=== PATIENT | male | born 1990 | race Two or more races ===

== ENCOUNTER 2025-05-22 16:00 | Emergency (ER) | payer MEDICAID, OTHER ==
[~2025-05-22] VITALS: Ht 170.2 cm; Wt 84.4 kg
[2025-05-22] MEDS: KETOROLAC TROMETH 60MG/2ML VIAL IM ONE (16:46)
--- NOTE | 2025-05-22 17:03 | DVH ---
EXAM: XY CHEST PORTABLE HISTORY: Chest pain COMPARISON: None TECHNIQUE: PA upright view of the chest was performed. FINDINGS: No pneumothorax, consolidative infiltrates, or pulmonary edema. The heart is not enlarged. IMPRESSION: No acute intrathoracic process.
--- NOTE | 2025-05-22 17:34 | ED.PDOC ---
History of Present Illness HPI Comments 34 year old male presents to the ED for the c/c of diffuse central and left- sided chest pain that has been causing shortness a breath. Pt states that he had a sudden onset of SOB today and shortly after started to have chest pain w/ his SOB. No coughing, no recent travel, or illness. Lungs are clear bilaterally in all horvath. No other associated symptoms, modifiers, recent injuries or sick contacts present at this time. Vital signs were stable. Patient did not look toxic. Chief Complaint: Shortness of Breath Time Seen by MD: 17:32 Reviewed Notes: Nurses Notes, Medications, Allergies Allergies: Coded Allergies: NO KNOWN ALLERGIES (Unverified , 05/22/25) Information Source: Patient Mode of Arrival: Ambulatory Severity: Moderate Timing: Hours Duration: Since onset, Hours Prehospital treatment: None Past Medical History PAST MEDICAL HISTORY: Denies Surgical History: Unknown Family History Family History: Unknown Social History Smoker: Non-Smoker Alcohol: Denies ETOH Use Drugs: Denies Drug Use Lives In: Home Constitutional: denies: chills, diaphoresis, fatigue, fever, malaise, sweats, weakness, others EENTM: denies: blurred vision, double vision, ear bleeding, ear discharge, ear drainage, ear pain, ear ringing, eye pain, eye redness, hearing loss, mouth pain, mouth swelling, nasal discharge, nose bleeding, nose congestion, nose pain, photophobia, tearing, throat pain, throat swelling, voice changes, others Respiratory: reports: SOB at rest, shortness of breath; denies: cough, hemoptysis, orthopnea, SOB with excertion, stridor, wheezing, others Cardiovascular: reports: chest pain; denies: dizzy spells, diaphoresis, Dyspnea on exertion, edema, irregular heart beat, left arm pain, lightheadedness, palpitations, PND, syncope, others Gastrointestinal: denies: abdomen distended, abdominal pain, blood streaked bowels, constipated, diarrhea, dysphagia, difficulty swallowing, hematemesis, melena, nausea, poor appetite, poor fluid intake, rectal bleeding, rectal pain, vomiting, others Genitourinary: denies: burning, dysuria, flank pain, frequency, hematuria, incontinence, penile discharge, penile sore, pain, testicle pain, testicle swelling, urgency, others Neurological: denies: dizziness, fainting, headache, left sided numbness, left sided weakness, numbness, paresthesia, pre-existing deficit, right sided numbness, right sided weakness, seizure, speech problems, tingling, tremors, weakness, others Musculoskeletal: denies: back pain, gout, joint pain, joint swelling, muscle pain, muscle stiffness, neck pain, others Integumetry: denies: bruises, change in color, change in hair/nails, dryness, laceration, lesions, lumps, rash, wounds, others Allergic/Immunocompromised: denies: Difficulty Healing, Frequent Infections, Hives, Itching, others Hematologic/Lymphatic: denies: anemia, blood clots, easy bleeding, easy bruising, swollen glands, others Endocrine: denies: excessive hunger, excessive sweating, excessive thirst, excessive urination, flushing, intolerance to cold, intolerance to heat, unexplained weight gain, unexplained weight loss, others Psychiatric: denies: anxiety, bipolar disorder, depression, hopeless, panic disorder, schizophrenia, sleepless, suicidal, others All Other Systems: Reviewed and Negative Physical Exam General Appearance: Mild Distress (Patient has a mild discomfort at time of evaluation.), Normal HEENT: Normal ENT Inspection, Pharynx Normal, TMs Normal Neck: Full Range of Motion, Non-Tender, Normal, Normal Inspection Respiratory: Lungs Clear, No Accessory Muscle Use, No Respiratory Distress, Normal Breath Sounds, Other (Unremarkable auscultation bilateral lung horvath. U nable to elicit any additional chest pain on palpation of left-sided chest.) Cardiovascular: No Edema, No JVD, No Murmur, No Gallop, Normal Peripheral Pulses, Regular Rate/Rhythm Breast Exam: Deferred Gastrointestinal: No Organomegaly, Non Tender, No Pulsatile Mass, Normal Bowel Sounds, Soft Genitalia: Deferred Pelvic: Deferred Rectal: Deferred Extremities: No calf tenderness, Normal capillary refill, Normal inspection, Normal range of motion, Non-tender, No pedal edema Musculoskeletal : Apperance: Normal Neurologic: Alert, No Motor Deficits, Normal Affect, Normal Mood, No Sensory Deficits Cerebellar Function: Normal Reflexes: Normal Skin: Dry, Normal Color, Warm Lymphatic: No Adenopathy Was a procedure done? Was a procedure done?: No Differential Dx Considerations may include: Pneumonia, viral upper respiratory illness, acute coronary syndrome, angina, SC X-Ray, Labs, Meds, VS Vital Signs Date Time Temp Pulse Resp B/P (MAP) Pulse Ox O2 Delivery O2 Flow Rate FiO2 05/22/25 16:50 98.9 64 17 132/88 (103) 97 98.9 05/22/25 16:50 64 17 97 Room Air 05/22/25 16:14 77 05/22/25 16:13 98.7 83 16 140/94 (109) 98 98.7 05/22/25 16:13 83 16 98 Room Air 0 Lab Test 05/22/25 16:54 Range/Units White Blood Count 7.6 4.4-10.8 10^3/uL Red Blood Count 5.41 4.5-5.90 10^6/uL Hemoglobin 16.6 13.5-17.5 g/dL Hematocrit 47.1 41.0-53.0 % Mean Corpuscular Volume 87.2 80.0-100.0 fL Mean Corpuscular Hemoglobin 30.6 28.0-32.0 pg Mean Corpuscular Hemoglobin Concent 35.1 32.0-36.0 g/dL Red Cell Distribution Width 13.3 11.8-14.3 % Platelet Count 188 140-450 10^3/uL Mean Platelet Volume 9.5 6.9-10.8 fL Neutrophils (%) (Auto) 56.6 37.0-80.0 % Lymphocytes (%) (Auto) 32.2 10.0-50.0 % Monocytes (%) (Auto) 6.3 0.0-12.0 % Eosinophils (%) (Auto) 4.3 0.0-7.0 % Basophils (%) (Auto) 0.6 0.0-2.0 % Neutrophils # (Auto) 4.3 1.6-8.6 10 ^3/uL Lymphocytes # (Auto) 2.4 0.4-5.4 10 ^3/uL Monocytes # (Auto) 0.5 0-1.3 10 ^3/uL Eosinophils # (Auto) 0.3 0-0.8 10 ^3/uL Basophils # (Auto) 0 0-0.2 10 ^3/uL Nucleated Red Blood Cells 0.2 % D-Dimer, Quantitative < 0.19 0.0-0.49 mg/L FEU Sodium Level 142 136-145 mmol/L Potassium Level 3.9 3.5-5.1 mmol/L Chloride Level 106 98-107 mmol/L Carbon Dioxide Level 27 20-31 mmol/L Anion Gap 9 5-15 Blood Urea Nitrogen 11 9-23 mg/dL Creatinine 0.92 0.700-1.30 mg/dL Glomerular Filtration Rate Calc 113 >90 mL/min BUN/Creatinine Ratio 12.0 10.0-20.0 Serum Glucose 98 74-106 mg/dL Calcium Level 9.7 8.7-10.4 mg/dL Troponin I High Sensitivity 16 </=54 ng/L B-Type Natriuretic Peptide 20.94 0-100 pg/mL Current Medications Medications (Trade) Dose Ordered Sig/Alexandra Route Start Time Stop Time Status Last Admin Ketorolac Tromethamine (Toradol Injection) 30 mg ONCE ONCE IM 05/22/25 16:45 05/22/25 16:46 DC 05/22/25 16:46 X-Ray, Labs, Meds, VS Comment All studies performed in the ED were evaluated by me personally. Serum studies were unremarkable for any systemic process including unremarkable cardiac markers. EKG revealed a sinus rhythm with a rate of 77. Borderline right axis deviation noted with early repolarization pattern. PA interval of 181 and QT interval of 365. Chest x-ray was unremarkable for any consolidation or intr apulmonary concerns. Unknown cause of the patient's chest pain concerns. Advised patient utilize medication as needed and if symptoms continue, patient will need to follow up with the primary care provider. Time of 1ST Reevaluation: 18:07 Reevaluation 1ST: Improved Consultation: PCP, Cardiology Patient Education/Counseling: Diagnosis, Treatment, Need For Follow Up Family Education/Counseling: Diagnosis, Treatment, No Family Present SEPSIS Sepsis Screen Date sepsis recognized/suspect: May 22, 2025 Time Sepsis recognized/suspect: 161 Recent Procedure: No On Antibiotic Therapy: No Respiratory Rate >20: No Heart Rate >90: No Temp<36 C (96.8 F) or >38.3 C: No SBP <90 or MAP <65 mmHG: No New Acute Mental Status Change: No Is the patient on CPAP, BIPAP,: No Physician Orders Electrocardigram (05/22/25 16:17) Chest Portable (05/22/25 16:33) Vital Signs Date Time Temp Pulse Resp B/P (MAP) Pulse Ox O2 Delivery O2 Flow Rate FiO2 05/22/25 16:50 98.9 64 17 132/88 (103) 97 98.9 05/22/25 16:50 64 17 97 Room Air 05/22/25 16:14 77 05/22/25 16:13 98.7 83 16 140/94 (109) 98 98.7 05/22/25 16:13 83 16 98 Room Air 0 Laboratory Tests Test 05/22/25 16:54 White Blood Count 7.6 10^3/uL (4.4-10.8) Medications Medications Dose Ordered Sig/Alexandra Route Start Time Stop Time Status Last Admin Dose Admin Ketorolac Tromethamine 30 mg ONCE ONCE IM 05/22/25 16:45 05/22/25 16:46 DC 05/22/25 16:46 Departure 1 Departure Time of Disposition: 18:10 Impression: Primary Impression: Chest pain Disposition: HOME / SELF CARE / HOMELESS Condition: Stable Additional Instructions: Advised medication as needed for symptomatic relief. If symptoms continue, patient will need to follow up with the primary care provider for re-evaluation and possible cardiac referral. e-Prescriptions Ibuprofen Micronized (Ibuprofen) 800 Mg Tab 800 MG PO Q8HP PRN, #20 TAB Prov: EVAN REDDY PAC 05/22/25 Discharged With: Self, Friend Critical Care Note Critical Care Time?: No Stability Stability form required: No Heart Score Heart Score: Heart Score Response (Comments) Value History Slightly Suspicious 0 EKG Repolarization Disturb 1 Age <45 0 Risk Factors No known risk factors 0 Troponin Normal limit 0 Total 1 I personally scribed for EVAN REDDY PAC ([email or web address]) on 05/22/25 at 17:34. Electronically submitted by Refugio Otero ([email or web address]). EVAN REDDY PAC May 22, 2025 17:34
[2025-05-22 17:40] LABS: Hematocrit 47.1 % (41.0-53.0); Hemoglobin 16.6 g/dL (13.5-17.5); Mean Corpuscular Hemoglobin 30.6 pg (28.0-32.0); Mean Corpuscular Volume 87.2 fL (80.0-100.0); Nucleated Red Blood Cells % 0.2 %
[2025-05-22 17:41] LABS: Chloride 106 mmol/L (98-107); Potassium 3.9 mmol/L (3.5-5.1); Sodium 142 mmol/L (136-145)
[2025-05-22 17:42] LABS: Anion Gap 9 (5-15); Calcium 9.7 mg/dL (8.7-10.4); Carbon Dioxide 27 mmol/L (20-31)
[2025-05-22 17:47] LABS: BUN/Creatinine Ratio 12.0 (10.0-20.0); Blood Urea Nitrogen 11 mg/dL (9-23); Glucose 98 mg/dL (74-106)
[2025-05-22] MEDS ORDERED: IBUP-1455 PO (18:08)
[2025-05-22 18:39] VITALS: BP 126/89; PULSE 53; RESP 16; TEMP 98.3; O2SAT 99
--- NOTE | 2025-05-27 07:44 | ECG ---
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
--- NOTE | 2025-05-28 12:00 | ECG ---
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
== END 2025-05-22 18:42 | disposition home or self-care (01) ==
LOC: ER 16:00
DX: R07.89 Other chest pain (principal)
CPT/HCPCS: 36415; 71045; 80048; 83880; 84484; 85025; 85379; 93005; 96372; 99285; J1885

== ENCOUNTER 2025-05-24 14:35 | Inpatient (IN) | payer MEDICAID ==
[~2025-05-24] VITALS: Ht 170.2 cm; Wt 84.0 kg
[~2025-05-24 14:35] MED LIST: IBUP-1455 PO
--- NOTE | 2025-05-24 14:48 | ED.PDOC ---
HPI Comments 34 y.o male presents to the ED for a chief complaint of substernal chest pain associated with nausea and SOB that started 2 hours ago while driving. Patient describes pain as sharp, non radiating, constant and rating a 6/10 on the pain scale. Patient has no alleviating factors. Patient mentions being seen 2 days ago at [facility] for same complaint, labs and CXR came back unremarkable and was discharged with Ibuprofen prescription for pain. He denies any vomiting, diarrhea, abdominal pain, fever or chills. He admits to tobacco use but denies substance or alcohol use. Time Seen by MD: 14:41 Reviewed Notes: Nurses Notes, Medications, Allergies Allergies: Coded Allergies: NO KNOWN ALLERGIES (Unverified , 05/22/25) Home Meds Active Scripts Ibuprofen Micronized (Ibuprofen) 800 Mg Tab, 800 MG PO Q8HP PRN, #20 TAB Prov:EVAN REDDY Bess PAC 05/22/25 Information Source: Patient Mode of Arrival: Ambulatory Severity: Moderate Timing: Hours (2) Duration: Since onset Location: Substernal Radiation: No Radiation Quality: Sharp Onset: At Rest Cardiac Risk Factors: None PE Risk Factors: None History of: Similar pain in past Modifying Factors: Nothing Associated Signs and Symptoms: SOB, N/V (nausea only ) Past Medical History PAST MEDICAL HISTORY: Denies Surgical History: Denies all surgeries Family History Family History: Family hx of HTN Social History Smoker: Cigarettes Alcohol: Denies ETOH Use Drugs: Denies Drug Use Lives In: Home Constitutional: denies: chills, diaphoresis, fatigue, fever, malaise, sweats, weakness, others EENTM: denies: blurred vision, double vision, ear bleeding, ear discharge, ear drainage, ear pain, ear ringing, eye pain, eye redness, hearing loss, mouth pain, mouth swelling, nasal discharge, nose bleeding, nose congestion, nose pain, photophobia, tearing, throat pain, throat swelling, voice changes, others Respiratory: reports: SOB at rest, shortness of breath, SOB with excertion; denies: cough, hemoptysis, orthopnea, stridor, wheezing, others Cardiovascular: reports: chest pain; denies: dizzy spells, diaphoresis, Dyspnea on exertion, edema, irregular heart beat, left arm pain, lightheadedness, palpitations, PND, syncope, others Gastrointestinal: reports: nausea; denies: abdomen distended, abdominal pain, blood streaked bowels, constipated, diarrhea, dysphagia, difficulty swallowing, hematemesis, melena, poor appetite, poor fluid intake, rectal bleeding, rectal pain, vomiting, others Genitourinary: denies: burning, dysuria, flank pain, frequency, hematuria, incontinence, penile discharge, penile sore, pain, testicle pain, testicle swelling, urgency, others Neurological: denies: dizziness, fainting, headache, left sided numbness, left sided weakness, numbness, paresthesia, pre-existing deficit, right sided numbness, right sided weakness, seizure, speech problems, tingling, tremors, weakness, others Musculoskeletal: denies: back pain, gout, joint pain, joint swelling, muscle pain, muscle stiffness, neck pain, others Integumetry: denies: bruises, change in color, change in hair/nails, dryness, laceration, lesions, lumps, rash, wounds, others Allergic/Immunocompromised: denies: Difficulty Healing, Frequent Infections, Hives, Itching, others Hematologic/Lymphatic: denies: anemia, blood clots, easy bleeding, easy br uising, swollen glands, others Endocrine: denies: excessive hunger, excessive sweating, excessive thirst, excessive urination, flushing, intolerance to cold, intolerance to heat, unexplained weight gain, unexplained weight loss, others Psychiatric: denies: anxiety, bipolar disorder, depression, hopeless, panic disorder, schizophrenia, sleepless, suicidal, others All Other Systems: Reviewed and Negative Physical Exam General Appearance: Mild Distress HEENT: Normal ENT Inspection, Pharynx Normal, TMs Normal Neck: Full Range of Motion, Non-Tender, Normal, Normal Inspection Respiratory: Chest Non-Tender, Lungs Clear, No Accessory Muscle Use, No Respiratory Distress, Normal Breath Sounds Cardiovascular: No Edema, No JVD, No Murmur, No Gallop, Normal Peripheral Pulses, Regular Rate/Rhythm Breast Exam: Deferred Gastrointestinal: No Organomegaly, Non Tender, No Pulsatile Mass, Normal Bowel Sounds, Soft Genitalia: Deferred Pelvic: Deferred Rectal: Deferred Extremities: No calf tenderness, Normal capillary refill, Normal inspection, Normal range of motion, Non-tender, No pedal edema Musculoskeletal : Apperance: Normal Neurologic: Alert, court specialist II-XII nml as Tested, No Motor Deficits, Normal Affect, Normal Mood, No Sensory Deficits Cerebellar Function: Normal Reflexes: Normal Skin: Dry, Normal Color, Warm Lymphatic: No Adenopathy EKG EKG : Pulse Rate (adult): 63 Cardiac Rhythm: NSR Was a procedure done? Was a procedure done?: No CP Differential Dx Differential Diagnosis: N/A Differential Diagnosis: Angina, Chest Wall Pain, Cholelithiasis, Costochondri tis, Myocardial Infarction, Pericarditis X-Ray, Labs, Meds, VS Vital Signs Date Time Temp Pulse Resp B/P (MAP) Pulse Ox O2 Delivery O2 Flow Rate FiO2 05/24/25 15:05 63 18 98 Room Air* 0 21 05/24/25 14:48 63 05/24/25 14:41 63 05/24/25 14:37 98.5 63 18 128/71 (90) 98 98.5 05/24/25 14:37 98.5 63 18 128/71 (90) 98 98.5 Lab Test 05/24/25 15:36 05/24/25 14:49 05/24/25 14:45 Range/Units Troponin I High Sensitivity 8 8 </=54 ng/L White Blood Count 7.5 4.4-10.8 10^3/uL Red Blood Count 5.25 4.5-5.90 10^6/uL Hemoglobin 16.3 13.5-17.5 g/dL Hematocrit 46.2 41.0-53.0 % Mean Corpuscular Volume 87.9 80.0-100.0 fL Mean Corpuscular Hemoglobin 30.9 28.0-32.0 pg Mean Corpuscular Hemoglobin Concent 35.2 32.0-36.0 g/dL Red Cell Distribution Width 13.2 11.8-14.3 % Platelet Count 181 140-450 10^3/uL Mean Platelet Volume 9.4 6.9-10.8 fL Neutrophils (%) (Auto) 57.5 37.0-80.0 % Lymphocytes (%) (Auto) 31.2 10.0-50.0 % Monocytes (%) (Auto) 7.0 0.0-12.0 % Eosinophils (%) (Auto) 3.6 0.0-7.0 % Basophils (%) (Auto) 0.7 0.0-2.0 % Neutrophils # (Auto) 4.3 1.6-8.6 10 ^3/uL Lymphocytes # (Auto) 2.3 0.4-5.4 10 ^3/uL Monocytes # (Auto) 0.5 0-1.3 10 ^3/uL Eosinophils # (Auto) 0.3 0-0.8 10 ^3/uL Basophils # (Auto) 0 0-0.2 10 ^3/uL Nucleated Red Blood Cells 0.2 % D-Dimer, Quantitative < 0.19 0.0-0.49 mg/L FEU Sodium Level 144 136-145 mmol/L Potassium Level 4.0 3.5-5.1 mmol/L Chloride Level 109 H 98-107 mmol/L Carbon Dioxide Level 26 20-31 mmol/L Anion Gap 9 5-15 Blood Urea Nitrogen 11 9-23 mg/dL Creatinine 0.98 0.700-1.30 mg/dL Glomerular Filtration Rate Calc 105 >90 mL/min BUN/Creatinine Ratio 11.2 10.0-20.0 Serum Glucose 102 74-106 mg/dL Calcium Level 10.3 8.7-10.4 mg/dL Urine Opiates Screen Neg NEGATIVE Urine Fentanyl Screen Neg NEGATIVE Urine Barbiturates Screen Neg NEGATIVE Urine Phencyclidine Screen Neg NEGATIVE Urine Amphetamines Screen Neg NEGATIVE Urine Benzodiazepines Screen Neg NEGATIVE Urine Cocaine Screen Neg NEGATIVE Urine Cannabinoids Screen Neg NEGATIVE Current Medications Medications (Trade) Dose Ordered Sig/Alexandra Route Start Time Stop Time Status Last Admin Aspirin 162 mg ONCE ONCE PO 05/24/25 15:00 05/24/25 15:01 DC 05/24/25 15:07 IV Hep-Lock was established The patient was given aspirin 160 mg by mouth The urine tox is negative The D-dimer is negative The CBC and chemistry panel are within normal limits The patient's troponin level x2 is negative At this time, the patient came back with the persistent chest pain so we are going to admit patient to the hospitalist A cardiology consult will be obtained Images Reviewed?: Images reviewed and evaluated by me Time of 1ST Reevaluation: 14:44 Reevaluation 1ST: Unchanged Patient Education/Counseling: Diagnosis, Treatment, Prognosis Family Education/Counseling: No Family Present SEPSIS Sepsis Screen Physician Orders Heplock Iv (05/24/25 14:46) Security Assessor (05/24/25 14:46) Blood Pressure (05/24/25 14:46) Pulse Oximetry (05/24/25 14:46) Electrocardigram (05/24/25 14:46) Troponin-I Hs (05/24/25 17:46) Electrocardigram (05/24/25 15:46) Electrocardigram (05/24/25 17:46) Vital Signs Date Time Temp Pulse Resp B/P (MAP) Pulse Ox O2 Delivery O2 Flow Rate FiO2 05/24/25 15:05 63 18 98 Room Air* 0 21 05/24/25 14:48 63 05/24/25 14:41 63 05/24/25 14:37 98.5 63 18 128/71 (90) 98 98.5 05/24/25 14:37 98.5 63 18 128/71 (90) 98 98.5 Laboratory Tests Test 05/24/25 14:49 White Blood Count 7.5 10^3/uL (4.4-10.8) Medications Medications Dose Ordered Sig/Alexandra Route Start Time Stop Time Status Last Admin Dose Admin Aspirin 162 mg ONCE ONCE PO 05/24/25 15:00 05/24/25 15:01 DC 05/24/25 15:07 Departure 1 Departure Time of Disposition: 16:07 Impression: Primary Impression: Acute chest pain Disposition: ADMITTED INPATIENT Admit to: Tele Condition: Fair Critical Care Note Critical Care Time?: No Stability Stability form required: Yes Unstable for transfer: Telemetry monitoring (Telemetry monitoring required), ED Physician Assesment (Clinical assesment) Heart Score Heart Score: Heart Score Response (Comments) Value History Slightly Suspicious 0 EKG Normal 0 Age <45 0 Risk Factors No known risk factors 0 Troponin Normal limit 0 Total 0 I personally scribed for ZENY DIALLO MD ([email or web address]) on 05/24/25 at 14:48. Electr onically submitted by Natalia Rivas ([facility]). ZENY DIALLO MD May 24, 2025 14:48
[2025-05-24 15:05] VITALS: PULSE 63; RESP 18; O2SAT 98
[2025-05-24 15:13] LABS: Hematocrit 46.2 % (41.0-53.0); Hemoglobin 16.3 g/dL (13.5-17.5); Mean Corpuscular Hemoglobin 30.9 pg (28.0-32.0); Mean Corpuscular Volume 87.9 fL (80.0-100.0); Nucleated Red Blood Cells % 0.2 %
[2025-05-24 15:15] LABS: Amphetamine Screen, Urine Neg (NEGATIVE); Barbiturate Scree,Urine Neg (NEGATIVE); Benzodiazephine Screen, Urine Neg (NEGATIVE); Cannabinoid Screen, Urine Neg (NEGATIVE); Cocaine Screen, Urine Neg (NEGATIVE); Opiate Scree,Urine Neg (NEGATIVE); Phencyclidine Screen, Urine Neg (NEGATIVE)
[2025-05-24 15:17] LABS: Potassium 4.0 mmol/L (3.5-5.1); Sodium 144 mmol/L (136-145)
[2025-05-24 15:18] LABS: Anion Gap 9 (5-15); Calcium 10.3 mg/dL (8.7-10.4); Carbon Dioxide 26 mmol/L (20-31)
[2025-05-24 15:23] LABS: BUN/Creatinine Ratio 11.2 (10.0-20.0); Blood Urea Nitrogen 11 mg/dL (9-23); Chloride 109 mmol/L (98-107); Glucose 102 mg/dL (74-106)
--- NOTE | 2025-05-24 17:58 | ECG ---
[facility] Test Date: 2025-05-24 Test Time: 17:57:10 Pat Name: LAURIE HERBERT Department: ER Room: 0285T Gender: M Ct Scan Tech: NORRIS : 1990 Requested By: ZENY DIALLO Order Number: [id number] Reading MD: Abelardo Benjamin Measurements Intervals [place] Rate: 50 P: 161 SD: 157 QRS: 89 QRSD: 87 T: -18 QT: 438 QTc: 400 Interpretive Statements Sinus or ectopic atrial rhythm Lateral infarct, acute Borderline ST elevation, anterior leads Electronically Signed On 05-28-2025 18:54:54 PDT by Abelardo Benjamin Please click the below link to view image of tracing.
--- NOTE | 2025-05-24 22:53 | DVHHP2 ---
History of Present Illness History of Present Illness Patient is 34 years old male with no significant past medical history came with a complaint of chest pain. As per patient he has been having chest pain for last 1 month which is intermittent. As per patient pain got worse today.. The patient pain was gradual in nature, left-sided, 7/10, sharp, pressure-like, increased with the breathing, no relieving factor. Patient also endorsed some palpitation and nausea but no vomiting with the chest pain. on further inquiry patient also endorsed feeling dizzy lately during ambulation and also during rest. Patient denied any fever, cough, diarrhea, abdominal pain, acute joint redness or swelling, dysarthria or change in vision. Patient visited [facility] ER 2 days before with the same complaint and was discharged with ibuprofen. Initial lab workup was negative for troponin I, UDS negative, D-dimer< 0.19. EKG revealed Q-wave and T-wave inversion on lead 3., AVF. Past Medical History none Past Surgical History none Family History Mom had hypertension Past Social History Smokes 1 or 2 cigarettes per day, denies alcoholism or substance abuse, lives with family Review of Systems Review of Systems Allergy-NKDA Patient was seen today at the bedside. Respiratory denies cough or wheezing Gastrointestinal- denies any rectal bleeding, nausea or vomiting Musculoskeletal-denies acute joint swelling or tenderness or redness Neurological- denies acute dysarthria, dysphagia, change in vision Psychiatry- denies depression or SI or HI Skin- denies acute rash or purpura Allergies: Coded Allergies: NO KNOWN ALLERGIES (Unverified , 05/22/25) Exam Vital Signs Vital Signs Date Time Temp Pulse Resp B/P (MAP) Pulse Ox O2 Delivery O2 Flow Rate FiO2 05/24/25 22:04 99.9 54 16 127/89 (102) 99 99.9 05/24/25 15:05 Room Air* 0 21 Labs/Xrays Labs Test 05/24/25 15:36 05/24/25 14:49 05/24/25 14:45 Range/Units Troponin I High Sensitivity 8 </=54 ng/L White Blood Count 7.5 4.4-10.8 10^3/uL Red Blood Count 5.25 4.5-5.90 10^6/uL Hemoglobin 16.3 13.5-17.5 g/dL Hematocrit 46.2 41.0-53.0 % Mean Corpuscular Volume 87.9 80.0-100.0 fL Mean Corpuscular Hemoglobin 30.9 28.0-32.0 pg Mean Corpuscular Hemoglobin Concent 35.2 32.0-36.0 g/dL Red Cell Distribution Width 13.2 11.8-14.3 % Platelet Count 181 140-450 10^3/uL Mean Platelet Volume 9.4 6.9-10.8 fL Neutrophils (%) (Auto) 57.5 37.0-80.0 % Lymphocytes (%) (Auto) 31.2 10.0-50.0 % Monocytes (%) (Auto) 7.0 0.0-12.0 % Eosinophils (%) (Auto) 3.6 0.0-7.0 % Basophils (%) (Auto) 0.7 0.0-2.0 % Neutrophils # (Auto) 4.3 1.6-8.6 10 ^3/uL Lymphocytes # (Auto) 2.3 0.4-5.4 10 ^3/uL Monocytes # (Auto) 0.5 0-1.3 10 ^3/uL Eosinophils # (Auto) 0.3 0-0.8 10 ^3/uL Basophils # (Auto) 0 0-0.2 10 ^3/uL Nucleated Red Blood Cells 0.2 % D-Dimer, Quantitative < 0.19 0.0-0.49 mg/L FEU Sodium Level 144 136-145 mmol/L Potassium Level 4.0 3.5-5.1 mmol/L Chloride Level 109 H 98-107 mmol/L Carbon Dioxide Level 26 20-31 mmol/L Anion Gap 9 5-15 Blood Urea Nitrogen 11 9-23 mg/dL Creatinine 0.98 0.700-1.30 mg/dL Glomerular Filtration Rate Calc 105 >90 mL/min BUN/Creatinine Ratio 11.2 10.0-20.0 Serum Glucose 102 74-106 mg/dL Calcium Level 10.3 8.7-10.4 mg/dL Urine Opiates Screen Neg NEGATIVE Urine Fentanyl Screen Neg NEGATIVE Urine Barbiturates Screen Neg NEGATIVE Urine Phencyclidine Screen Neg NEGATIVE Urine Amphetamines Screen Neg NEGATIVE Urine Benzodiazepines Screen Neg NEGATIVE Urine Cocaine Screen Neg NEGATIVE Urine Cannabinoids Screen Neg NEGATIVE Assessment/Plan Assessment/Plan Assessment and plan #Acute chest pain, rule out acute coronary syndrome, rule out pericarditis -troponin negative -EKG Q-wave and T-wave inversion in lead 3 and AVF -continue aspirin 81 mg p.o. daily -continue atorvastatin 40 mg p.o. daily -ordered cardiology consult for further evaluation and care -pending echo 2D #Dizziness -rule out cardiac arrhythmia -ordered orthostatic vitals --EKG Q-wave and T-wave inversion in lead 3 and AVF -pending echo 2D # Overweight -patient was counseled about the effect of overweight on health, healthy diet, physical activity, weight reduction Goals of care, Code status full code ; discussed with >15 minutes PUD prophylaxis: Pantoprazole DVT prophylaxis: Patient ambulating Plan discussed with Dr. Ibarra , nursing staff, Total time spent on patient evaluation, chart review, assessment and plan, discussion discussion >35 minutes Plan discussed with: Patient, Other (RN) My Orders Orders - RADHA TURNER Procedure Category Date Status Time Admit ADMIT 05/24/25 Transmitted 22:50 Code Status CODE 05/24/25 Transmitted 22:50 Sodium Chloride Lock PHA 05/25/25 Transmitted (Saline Lock Ns) 06:00 Complete Blood Count LAB 05/25/25 Verified 04:00 Comprehensive LAB 05/25/25 Verified Metabolic Panel 04:00 Echo 2d Mode Cardiac US 05/24/25 Transmitted DOP 22:50 Nitroglycerin PHA 05/24/25 Transmitted Sublingual (Ntrostat 23:00 Morphine Sulfate PHA 05/24/25 Transmitted Injection 23:00 Notify Md Of Changes JANE 05/24/25 Transmitted From Base 22:50 Plant Utilities Engineer For JANE 05/24/25 Transmitted 24 Hours 22:50 Date of Service: May 24, 2025 Billing Provider: ALEJANDRA IBARRA MD Common Visit Codes: [id number] INP/OBS CARE (HIGH) Secondary Visit Codes: [id number] CARE PLAN 30 MINUTES RADHA TURNER May 24, 2025 22:53
[2025-05-24] MEDS: PANTOPRAZOLE 40 MG TAB PO ONE (23:00)
[2025-05-24] MEDS ORDERED: KETOROLAC TROMETH 30 MG/ML 1ML VIAL IV PRN (23:00)
[2025-05-24] MEDS ORDERED: MORPHINE SULFATE INJ 2 MG/ml SYRG IV PRN (23:00)
[2025-05-24] MEDS ORDERED: NITROGLYCERIN 0.4 MG SL TAB SL PRN (23:00)
[2025-05-25] MEDS: ATORVASTATIN 20 MG TAB PO ONE (02:58)
[2025-05-25 05:00] LABS: Chloride 105 mmol/L (98-107); Potassium 3.5 mmol/L (3.5-5.1); Sodium 143 mmol/L (136-145)
[2025-05-25 05:01] LABS: Anion Gap 10 (5-15); Calcium 10.1 mg/dL (8.7-10.4); Carbon Dioxide 28 mmol/L (20-31)
[2025-05-25 05:06] LABS: BUN/Creatinine Ratio 12.6 (10.0-20.0); Blood Urea Nitrogen 14 mg/dL (9-23); Glucose 116 mg/dL (74-106)
[2025-05-25 05:07] LABS: Magnesium 2.2 mg/dL (1.6-2.6)
[2025-05-25 05:08] LABS: Cholesterol 173 mg/dL (< 200)
[2025-05-25 05:17] LABS: HDL Cholesterol 33 mg/dL (40-59); Triglycerides 207 mg/dL (< 150)
[2025-05-25] MEDS: PANTOPRAZOLE 40 MG TAB PO SCH (05:51)
[2025-05-25] MEDS: SODIUM CHLOR 0.9% PF (SALINE LOCK) 10ML VIAL/SYR IV SCH (06:22)
[2025-05-25 08:27] VITALS: PULSE 59; PULSE 63; RESP 17; RESP 18; O2SAT 97; O2SAT 98
[2025-05-25 10:12] LABS: Hepatitis B Surface Antigen Negative (Negative)
[2025-05-25 10:32] LABS: COVID19 ANTIGEN SOFIA FIA NEGATIVE (NEGATIVE)
[2025-05-25 10:35] LABS: Hepatitis C Antibody Negative (Negative)
--- NOTE | 2025-05-25 11:22 | DVHINCON2 ---
ROSHAN TOMLIN [facility] 05/25/25 1122: Date Seen: May 25, 2025 Referring Physician MD Su Reason for Consultation Chest pain History of Present Illness This is a pleasant 34-year-old man who presented to the emergency room with a chief complaint of chest pain which initiated for 2 hours. The patient reports he was resting and diastolic symptoms describing the chest pain as substernal, nonradiating, constant, pressure-like, and associated with some nausea and SOB. Denies palpitations, diaphoresis, dizziness, or syncopal events. He underwent an initial 12 lead electrocardiogram revealing a sinus rhythm with dynamic changes with an early repolarization pattern which resolved on subsequent 12 lead electrocardiograms. Serial troponin levels are negative. He also presented for similar symptoms approximately two weeks ago to our emergency room where he was sent home on ibuprofen p.o. Denies any past medical history or significant familial history for cardiovascular disease. Social behaviors include a pack of cigarettes per week for the past ten years. Past Medical History Past medical history reviewed. No other significant than mentioned above. Past Surgical History Past Surgical history reviewed. No other significant than mentioned above. Family History: Hypertension G8 MOTHER Family History Family history reviewed. Mother with hypertension. Social History Denies the use of illicit drugs or alcohol. Admits to tobacco use, one pack of cigarettes every week. Allergies: Coded Allergies: NO KNOWN ALLERGIES (Unverified , 05/22/25) Home Meds Active Scripts Ibuprofen Micronized (Ibuprofen) 800 Mg Tab, 800 MG PO Q8HP PRN, #20 TAB Prov:EVAN REDDY Bess PAC 05/22/25 Home Meds Home medications reviewed. Current Medications Current Medications Medications (Trade) Dose Ordered Sig/Alexandra Route PRN Reason Start Time Stop Time Status Last Admin Sodium Chloride (Saline Lock Ns) 10 ml Q8HR IV 05/25/25 06:00 05/25/25 06:22 Nitroglycerin (Ntrostat Sublingual) 0.4 mg Q5MINP PRN SL FOR CHEST PAIN 05/24/25 23:00 Morphine Sulfate 2 mg Q30M PRN IV FOR CHEST PAIN 05/24/25 23:00 Ketorolac Tromethamine (Toradol Injection) 15 mg Q6HPRN PRN IV SEVERE PAIN (7-10 PAIN SCALE) 05/24/25 23:00 05/24/25 23:24 DC Pantoprazole Sodium (Protonix Tablet) 40 mg DAILY@0600 PO 05/25/25 06:00 05/25/25 05:51 Aspirin 81 mg DAILY PO 05/25/25 10:00 05/25/25 10:21 Atorvastatin Calcium (Lipitor) 40 mg HS PO 05/25/25 22:00 Review of Systems Constitutional: No symptom reported Ears, Nose, & Throat: No symptom reported Eyes: No symptom reported Neurological: No symptoms reported Pulmonary/Respiratory: SOB Cardiovascular: Chest pain Gastrointestinal: No symptom reported Genitourinary: No symptom reported Musculoskeletal: No symptom reported Skin: No symptom reported Psychiatric: No symptom reported Endocrine: No symptom reported Hemotologic/Lymphatic: No symptom reported Vital Signs Vital Signs Date Time Temp Pulse Resp B/P (MAP) Pulse Ox O2 Delivery O2 Flow Rate FiO2 05/25/25 09:30 50 16 125/85 (98) 98 05/25/25 08:42 98.4 98.4 05/25/25 08:27 Room Air* 0 21 Physical Exam General Appearance: Cooperative. Well developed. Well nourished. In no acute distress Head Exam: Normal inspection Neck Exam: Normal inspection. Non-tender. Normal alignment Pulmonary/Respiratory: Chest non-tender. Clear bilateral breath sounds Cardiovascular/Chest: Regular rate and rhythm. S1, S2. Sinus rhythm. No murmurs. No JVD. Peripheral Pulses: 2+ Radial (R). 2+ Radial (L). 2+ Pedal (R). 2+ Pedal (L) Abdominal Exam: Normal bowel sounds. Soft. Nontender. No hepatospenomegaly. No masses Ankle Exam: Negative ankle edema Lower extremities: Negative lower extremity edema Neuro/Mental Status: A&O x4. Coherent Thoughts/Psych: Normal thought pattern. Appropriate mood and affect. Good judgement and insight Appearance: In no acute distress Skin Exam: Normal inspection. Normal color. Warm. Dry Labs/Diagnostic Data Labs Test 05/25/25 09:10 05/25/25 03:39 05/25/25 00:00 05/24/25 15:36 Range/Units Influenza Type A Antigen Negative Negative Influenza Type B Antigen Negative Negative Sodium Level 143 136-145 mmol/L Potassium Level 3.5 3.5-5.1 mmol/L Chloride Level 105 98-107 mmol/L Carbon Dioxide Level 28 20-31 mmol/L Anion Gap 10 5-15 Blood Urea Nitrogen 14 9-23 mg/dL Creatinine 1.11 0.700-1.30 mg/dL Glomerular Filtration Rate Calc 90 >90 mL/min BUN/Creatinine Ratio 12.6 10.0-20.0 Serum Glucose 116 H 74-106 mg/dL Hemoglobin A1c 5.4 <5.7 % A1C Calcium Level 10.1 8.7-10.4 mg/dL Magnesium Level 2.2 1.6-2.6 mg/dL Triglycerides Level 207 H < 150 mg/dL Cholesterol Level 173 < 200 mg/dL LDL Cholesterol 131 H < 100 mg/dL HDL Cholesterol 33 L 40-59 mg/dL Vitamin D 25-Hydroxy 40.7 30.0-100 ng/mL Folic Acid 14.22 >5.38 ng/mL SARS-CoV-2 Antigen (Rapid) Negative NEGATIVE Troponin I High Sensitivity 8 </=54 ng/L C-Reactive Protein High Sensitivity 0.33 <1.0 mg/dL Thyroid Stimulating Hormone (TSH) 1.06 0.55-4.78 uIU/mL Test 05/24/25 14:49 05/24/25 14:45 Range/Units White Blood Count 7.5 4.4-10.8 10^3/uL Red Blood Count 5.25 4.5-5.90 10^6/uL Hemoglobin 16.3 13.5-17.5 g/dL Hematocrit 46.2 41.0-53.0 % Mean Corpuscular Volume 87.9 80.0-100.0 fL Mean Corpuscular Hemoglobin 30.9 28.0-32.0 pg Mean Corpuscular Hemoglobin Concent 35.2 32.0-36.0 g/dL Red Cell Distribution Width 13.2 11.8-14.3 % Platelet Count 181 140-450 10^3/uL Mean Platelet Volume 9.4 6.9-10.8 fL Neutrophils (%) (Auto) 57.5 37.0-80.0 % Lymphocytes (%) (Auto) 31.2 10.0-50.0 % Monocytes (%) (Auto) 7.0 0.0-12.0 % Eosinophils (%) (Auto) 3.6 0.0-7.0 % Basophils (%) (Auto) 0.7 0.0-2.0 % Neutrophils # (Auto) 4.3 1.6-8.6 10 ^3/uL Lymphocytes # (Auto) 2.3 0.4-5.4 10 ^3/uL Monocytes # (Auto) 0.5 0-1.3 10 ^3/uL Eosinophils # (Auto) 0.3 0-0.8 10 ^3/uL Basophils # (Auto) 0 0-0.2 10 ^3/uL Nucleated Red Blood Cells 0.2 % Erythrocyte Sedimentation Rate 3 0-20 mm/hr D-Dimer, Quantitative < 0.19 0.0-0.49 mg/L FEU Hepatitis B Surface Antigen Negative Negative Hepatitis C Antibody Negative Negative Urine Opiates Screen Neg NEGATIVE Urine Fentanyl Screen Neg NEGATIVE Urine Barbiturates Screen Neg NEGATIVE Urine Phencyclidine Screen Neg NEGATIVE Urine Amphetamines Screen Neg NEGATIVE Urine Benzodiazepines Screen Neg NEGATIVE Urine Cocaine Screen Neg NEGATIVE Urine Cannabinoids Screen Neg NEGATIVE Assessment Chest pain Rule out structural heart disease Dyslipidemia, newly diagnosed Borderline obesity Tobacco use Plan/Recommendation (Dr. Abraham) The patient with chest pain presented with an initial 12 lead electrocardiogram revealing hyperdynamic ST-T changes suggestive of early repolarization which resolved on subsequent ECGs. Serial troponin levels are negative. Presents with a heart score of three points placing him at a low risk for major cardiac events. We will continue further cardiac evaluation with a transthoracic echocardiogram to rule out structural heart disease. In the meantime, initiate lipid lowering agent given newly diagnosed dyslipidemia. In the setting of an unremarkable echocardiogram, there is no further cardiac workup indicated at this time. Consider outpatient ischemic workup if deemed necessary. Thank you for allowing us to participate in this patient's care. Please call if you have any questions or concerns. This medical document was created using an electronic medical record system with voice recognition software and computerized dictation system. Although this document has been carefully reviewed, there might still be some phonetic and typographical errors. Occasional wrong-word or ``sound-alike substitutions may have occurred due to the inherent limitations of voice recognition software. These areas are purely typographical due to imperfections of the software programs and do not reflect any compromise in the patient's medical care. Please read the chart carefully and recognize, using context, where these substitutions have occurred. Plan discussed with: Patient NYHA Physical activity limitations: NA Date of Service: May 25, 2025 Billing Provider: ROSHAN TOMLIN [facility] Common Codes: [id number] INP/OBS CARE (High) BOYD ABRAHAM MD 05/25/25 1325: Family History: Hypertension G8 MOTHER Allergies: Coded Allergies: NO KNOWN ALLERGIES (Unverified , 05/22/25) Home Meds Active Scripts Ibuprofen Micronized (Ibuprofen) 800 Mg Tab, 800 MG PO Q8HP PRN, #20 TAB Prov:EVAN REDDY PAC 05/22/25 Plan/Recommendation negative cv workup negative echo normal lvef will sign off, outpt fu if needed ROSHAN TOMLIN [facility] May 25, 2025 11:22 BOYD ABRAHAM MD May 25, 2025 13:25
[2025-05-25] MEDS: POTASSIUM CHL 20 Meq TABLET PO ONE (11:33)
--- NOTE | 2025-05-25 11:53 | ECG ---
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
--- NOTE | 2025-05-25 12:00 | ECG ---
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
--- NOTE | 2025-05-25 12:49 | DVHPN2 ---
Reviewed: Care Plan, H&P, Labs, Medications, Previous Orders, Radiology Changes from previous H/P or p: No Changes Objective Vitals Vital Signs Date Time Temp Pulse Resp B/P (MAP) Pulse Ox O2 Delivery O2 Flow Rate FiO2 05/25/25 12:01 62 132/82 70 126/86 56 134/84 05/25/25 11:30 14 97 05/25/25 08:42 98.4 98.4 05/25/25 08:27 Room Air* 0 21 Medications Current Medications Medications Dose Ordered Sig/Alexandra Route Start Time Stop Time Status Last Admin Dose Admin Sodium Chloride 10 ml Q8HR IV 05/25/25 06:00 05/25/25 06:22 10 ML Nitroglycerin 0.4 mg Q5MINP PRN SL 05/24/25 23:00 Morphine Sulfate 2 mg Q30M PRN IV 05/24/25 23:00 Pantoprazole Sodium 40 mg DAILY@0600 PO 05/25/25 06:00 05/25/25 05:51 40 MG Aspirin 81 mg DAILY PO 05/25/25 10:00 05/25/25 10:21 81 MG Atorvastatin Calcium 40 mg HS PO 05/25/25 22:00 Laboratory Results Laboratory Tests 05/24/25 14:49 05/25/25 03:39 Chemistry Test 05/24/25 14:49 05/25/25 03:39 Calcium Level 10.3 mg/dL (8.7-10.4) 10.1 mg/dL (8.7-10.4) Magnesium Level 2.2 mg/dL (1.6-2.6) Coagulation Test 05/24/25 14:49 D-Dimer, Quantitative < 0.19 mg/L FEU (0.0-0.49) Lipid panel Test 05/25/25 03:39 Cholesterol Level 173 mg/dL (< 200) HDL Cholesterol 33 mg/dL (40-59) L Triglycerides Level 207 mg/dL (< 150) H HgA1c, TSH Test 05/24/25 15:36 05/25/25 03:39 Thyroid Stimulating Hormone (TSH) 1.06 uIU/mL (0.55-4.78) Hemoglobin A1c 5.4 % A1C (<5.7) Labs and/or images reviewed: Labs reviewed by me, Image(s) reviewed by me Assessment/Plan Assessment/Plan Chest Pain Troponin negative x3 probably noncardiac, consult for Cardiology Hyperlipidemia: Lipitor Urine drug screen negative Chest x-ray neg Plan discussed with: Patient Date of Service: May 25, 2025 Billing Provider: GERMAIN CASEY MD Common Visit Codes: [id number] INP/OBS CARE(HIGH) GERMAIN CASEY MD May 25, 2025 12:49
--- NOTE | 2025-05-25 12:59 | DVHSR ---
APPROVED REPORT EXAM: Two-dimensional and M-mode echocardiogram with Doppler and color Doppler. Blood Pressure: 125/72 mmHg INDICATION Chest Pain RISK FACTORS Height: 5'7", Weight: 185 DIMENSIONS LVDd4.8 (3.8-5.7cm)LA (2D)3.9 (1.9-4.0cm)Aortic Root3.1 (2.0-3.7cm) LVDs3.3 (2.5-4.0cm)LA (MM) (1.9-4.0cm)Aortic Cusp Exc1.9 (1.5-2.0cm) EF (%) 55.0 (55-70%)Rt. Atrium4.0 (1.9-4.0cm)Asc. Aorta cm IVSd1.1 (0.7-1.1cm)RV (D)4.0 (1.8-2.4cm) PWd0.9 (0.7-1.1cm) Mitral Valve MitralMitral Stenosis E wave0.78m/sMV Mean GR.mmHg A wave0.45m/sMV Peak GR.mmHg E/A ratio1.72D MVAcm2 DECEL [id number] 1/2 Timems Aortic Valve Aortic ValveAortic Stenosis V10.89m/José Mean GR.3mmHg V21.20m/José Peak GR.6mmHg LVOT Diameter2.0 (1.8-2.4cm)Doppler AVA2.33cm2 Pulmonic Valve V21.03m/s Tricuspid Valve TR Velocity2.54m/s [id number] Conclusion lvef 60% normal rv function no severe valve abnormalities noted
[2025-05-25 19:07] LABS: Urine Protein, UAD Negative (Negative)
[2025-05-25 19:27] VITALS: PULSE 60; RESP 16; O2SAT 95
[2025-05-25 21:00] VITALS: BP 132/79; PULSE 55; RESP 17; TEMP 98.1; O2SAT 97
[2025-05-25] MEDS: ATORVASTATIN 20 MG TAB PO SCH (22:21)
[2025-05-26 05:00] VITALS: BP 119/70; PULSE 52; RESP 18; TEMP 97.5; O2SAT 98
[2025-05-26 08:00] VITALS: PULSE 53
[2025-05-26 08:10] VITALS: PULSE 67; RESP 17; O2SAT 99
[2025-05-26 09:00] VITALS: BP 135/77; PULSE 67; RESP 17; TEMP 98.2; O2SAT 99
[2025-05-26] MEDS ORDERED: ATOR-507 PO ×2 (12:48)
--- NOTE | 2025-05-26 12:49 | DVHPN2 ---
Reviewed: Care Plan, H&P, Labs, Medications, Previous Orders, Radiology Changes from previous H/P or p: No Changes Objective Vitals Vital Signs Date Time Temp Pulse Resp B/P (MAP) Pulse Ox O2 Delivery O2 Flow Rate FiO2 05/26/25 09:00 98.2 67 17 135/77 (96) 99 98.2 05/26/25 08:10 Room Air* 0 21 Medications Current Medications Medications Dose Ordered Sig/Alexandra Route Start Time Stop Time Status Last Admin Dose Admin Sodium Chloride 10 ml Q8HR IV 05/25/25 06:00 05/26/25 05:11 10 ML Nitroglycerin 0.4 mg Q5MINP PRN SL 05/24/25 23:00 Morphine Sulfate 2 mg Q30M PRN IV 05/24/25 23:00 Pantoprazole Sodium 40 mg DAILY@0600 PO 05/25/25 06:00 05/25/25 05:51 40 MG Aspirin 81 mg DAILY PO 05/25/25 10:00 05/26/25 10:05 81 MG Atorvastatin Calcium 40 mg HS PO 05/25/25 22:00 05/25/25 22:21 40 MG Laboratory Results Laboratory Tests 05/24/25 14:49 05/25/25 03:39 Urinalysis Test 05/25/25 18:48 Urine Color Light-yellow (Yellow) Urine Clarity Clear (Clear) Urine pH 6.5 (5.0-9.0) Urine Specific [place] 1.015 (1.001-1.035) Urine Protein Negative (Negative) Urine Ketones Negative (Negative) Urine Blood Negative /uL (Negative) Urine Nitrite Negative (Negative) Urine Bilirubin Negative (Negative) Urine Urobilinogen Normal mg/dL (Negative) Urine Leukocyte Esterase Negative /uL (Negative) Urine RBC 1 /hpf (0 - 3) Urine Microscopic WBC 1 /HPF (0-3) Urine Squamous Epithelial Cells Few /hpf (<5) Urine Bacteria None seen /hpf (None Seen) Urine Mucus Few (None Seen) Urine Glucose Normal mg/dL (Normal) Labs and/or images reviewed: Labs reviewed by me, Image(s) reviewed by me Assessment/Plan Assessment/Plan Chest Pain Troponin negative x3 probably noncardiac, cardiology consult by Dr. Alexandre appreciated echo 60% ejection fraction Hyperlipidemia: Lipitor Urine drug screen negative Chest x-ray neg Plan discussed with: Patient My Orders Orders - CASEY,GERMAIN M MD Procedure Category Date Status Time Cardiac DIET 05/25/25 Transmitted Diet-2gna,Lofat,Lochol Lunch Date of Service: May 26, 2025 Billing Provider: GERMAIN CASEY MD Common Visit Codes: [id number] INP/OBS CARE(HIGH) GERMAIN CASEY MD May 26, 2025 12:49
--- NOTE | 2025-05-26 12:52 | DVHDS2 ---
Discharge Summary Date of Admission May 24, 2025 at 22:50 Date of Discharge: May 26, 2025 Admitting Diagnosis Chest pain Wounds: None Labs/Diagnostic Data: Laboratory Results Test 05/25/25 18:48 05/25/25 09:10 05/25/25 03:39 05/25/25 00:00 Urine Color Light-yellow (Yellow) Urine Clarity Clear (Clear) Urine pH 6.5 (5.0-9.0) Urine Specific [place] 1.015 (1.001-1.035) Urine Protein Negative (Negative) Urine Ketones Negative (Negative) Urine Blood Negative /uL (Negative) Urine Nitrite Negative (Negative) Urine Bilirubin Negative (Negative) Urine Urobilinogen Normal mg/dL (Negative) Urine Leukocyte Esterase Negative /uL (Negative) Urine RBC 1 /hpf (0 - 3) Urine Microscopic WBC 1 /HPF (0-3) Urine Squamous Epithelial Cells Few /hpf (<5) Urine Bacteria None seen /hpf (None Seen) Urine Mucus Few (None Seen) Urine Glucose Normal mg/dL (Normal) Influenza Type A Antigen Negative (Negative) Influenza Type B Antigen Negative (Negative) Sodium Level 143 mmol/L (136-145) Potassium Level 3.5 mmol/L (3.5-5.1) Chloride Level 105 mmol/L (98-107) Carbon Dioxide Level 28 mmol/L (20-31) Anion Gap 10 (5-15) Blood Urea Nitrogen 14 mg/dL (9-23) Creatinine 1.11 mg/dL (0.700-1.30) Glomerular Filtration Rate Calc 90 mL/min (>90) BUN/Creatinine Ratio 12.6 (10.0-20.0) Serum Glucose 116 mg/dL (74-106) Hemoglobin A1c 5.4 % A1C (<5.7) Calcium Level 10.1 mg/dL (8.7-10.4) Magnesium Level 2.2 mg/dL (1.6-2.6) Triglycerides Level 207 mg/dL (< 150) Cholesterol Level 173 mg/dL (< 200) LDL Cholesterol 131 mg/dL (< 100) HDL Cholesterol 33 mg/dL (40-59) Vitamin B12 Level 553 pg/mL (211-911) Vitamin D 25-Hydroxy 40.7 ng/mL (30.0-100) Folic Acid 14.22 ng/mL (>5.38) SARS-CoV-2 Antigen (Rapid) Negative (NEGATIVE) Test 05/24/25 15:36 05/24/25 14:49 05/24/25 14:45 Troponin I High Sensitivity 8 ng/L (</=54) C-Reactive Protein High Sensitivity 0.33 mg/dL (<1.0) Thyroid Stimulating Hormone (TSH) 1.06 uIU/mL (0.55-4.78) White Blood Count 7.5 10^3/uL (4.4-10.8) Red Blood Count 5.25 10^6/uL (4.5-5.90) Hemoglobin 16.3 g/dL (13.5-17.5) Hematocrit 46.2 % (41.0-53.0) Mean Corpuscular Volume 87.9 fL (80.0-100.0) Mean Corpuscular Hemoglobin 30.9 pg (28.0-32.0) Mean Corpuscular Hemoglobin Concent 35.2 g/dL (32.0-36.0) Red Cell Distribution Width 13.2 % (11.8-14.3) Platelet Count 181 10^3/uL (140-450) Mean Platelet Volume 9.4 fL (6.9-10.8) Neutrophils (%) (Auto) 57.5 % (37.0-80.0) Lymphocytes (%) (Auto) 31.2 % (10.0-50.0) Monocytes (%) (Auto) 7.0 % (0.0-12.0) Eosinophils (%) (Auto) 3.6 % (0.0-7.0) Basophils (%) (Auto) 0.7 % (0.0-2.0) Neutrophils # (Auto) 4.3 10 ^3/uL (1.6-8.6) Lymphocytes # (Auto) 2.3 10 ^3/uL (0.4-5.4) Monocytes # (Auto) 0.5 10 ^3/uL (0-1.3) Eosinophils # (Auto) 0.3 10 ^3/uL (0-0.8) Basophils # (Auto) 0 10 ^3/uL (0-0.2) Nucleated Red Blood Cells 0.2 % Erythrocyte Sedimentation Rate 3 mm/hr (0-20) D-Dimer, Quantitative < 0.19 mg/L FEU (0.0-0.49) Hepatitis B Surface Antigen Negative (Negative) Hepatitis C Antibody Negative (Negative) Urine Opiates Screen Neg (NEGATIVE) Urine Fentanyl Screen Neg (NEGATIVE) Urine Barbiturates Screen Neg (NEGATIVE) Urine Phencyclidine Screen Neg (NEGATIVE) Urine Amphetamines Screen Neg (NEGATIVE) Urine Benzodiazepines Screen Neg (NEGATIVE) Urine Cocaine Screen Neg (NEGATIVE) Urine Cannabinoids Screen Neg (NEGATIVE) Other Laboratory Tests 05/25/25 03:39 05/24/25 14:49 Brief Hx & Hospital Course: 64-year-old male came in for chest pain no previous medical history troponin negative x3 echo 60 percent ejection fraction treated per ACS protocol cholesterol was high started on Lipitor urine drug screen is negative chest x- ray negative patient feels better stable vital signs and no chest pain. Discharged home prescription for Lipitor transmitted to pharmacy Consults/Reason for consult Cardiology Dr. Alexandre Operations or Procedures Echocardiogram Condition at Discharge: Fair Final Diagnosis/Problems List Chest Pain Troponin negative x3 probably noncardiac, cardiology consult by Dr. Alexandre appreciated echo 60% ejection fraction Hyperlipidemia: Lipitor Urine drug screen negative Chest x-ray neg Discharge Disposition: Home Discharge Instruct/Medications Diet: Cardiac 2g Na,low cholest Activity: No Restrictions, As Tolerated Follow Up/Referral: Follow up with the primary Dr Medications: Lipitor Transmitted to [facility]'s Scheduled Atorvastatin Calcium (Lipitor), 1 TAB PO QPM 35 (Time taken for discharge summary 35 minutes) Discharge Statement: "Patient was advised to return to the ER or call 911 if any headaches, dizziness, shortness of breath, chest pain, abdominal pain, bleeding, fevers, or worsening of medical condition. Patient was counseled about treatment plan, medications, possible side effects, patientverbalized understanding. All questions were answered to the best of my ability. This discharge took greater then 30 minutes in planning, reviewing documentation, counseling the patient, and discussing with other team members." ASSESSMENT ASSESSMENT Hospital Course Improved Assessment Chest Pain Troponin negative x3 probably noncardiac, cardiology consult by Dr. Alexandre appreciated echo 60% ejection fraction Hyperlipidemia: Lipitor Urine drug screen negative Chest x-ray neg Date of Service: May 26, 2025 Billing Provider: GERMAIN CASEY MD Common Visit Codes: 96480-HYM/OBS DISCH DAY >30min GERMAIN CASEY MD May 26, 2025 12:52
[2025-05-26 13:00] VITALS: BP 123/77; PULSE 52; RESP 16; TEMP 98; O2SAT 98
[2025-05-26 14:05] VITALS: BP 123/77; PULSE 52; RESP 16; TEMP 98.4; O2SAT 98
--- NOTE | 2025-05-27 13:34 | ECG ---
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
--- NOTE | 2025-05-27 13:35 | ECG ---
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
== END 2025-05-26 14:39 | disposition home or self-care (01) | DRG 203 ==
LOC: ER 14:41 → OVERFLOW 22:50 → ER 23:00 → TELE-WESTW 23:00 → OVERFLOW 23:00 → TELE-WESTW 05-25 22:41
PROVIDERS: ADMIT Family Medicine; ATTEND Family Medicine
DX: M94.0 Chondrocostal junction syndrome [Tietze] (principal); E66.9 Obesity, unspecified; E78.5 Hyperlipidemia, unspecified; Z20.822 Contact with and (suspected) exposure to COVID-19; F17.210 Nicotine dependence, cigarettes, uncomplicated; Z82.49 Family history of ischemic heart disease and other diseases of the circulatory system; Z79.82 Long term (current) use of aspirin; Z79.899 Other long term (current) drug therapy; Z68.29 Body mass index [BMI] 29.0-29.9, adult
CPT/HCPCS: 36415; 80048; 80061; 80307; 81001; 82306; 82607; 82746; 83036; 83735; 84443; 84484; 85025; 85379; 85652; 86141; 86803; 87340; 87426; 87804; 93005; 93306; G0378

== ENCOUNTER 2025-06-01 19:49 | Emergency (ER) | payer MEDICAID ==
[~2025-06-01] VITALS: Ht 170.2 cm; Wt 98.1 kg
[~2025-06-01 19:49] MED LIST changes: +ATOR-507 PO; -IBUP-1455 PO
--- NOTE | 2025-06-01 20:18 | ED.PDOC ---
History of Present Illness HPI Comments 34-year-old Latvian-speaking male who presents with chief complaint of epigastric abdominal pain, that radiates to his sternal chest area, with associated nausea, dizziness, lightheadedness, and left-sided headache. Patient endorses on symptoms starting an hour prior to arrival, unprovoked and sudden. He reports last meal containing chicken and vegetables, which he endorses on being a part of his usual diet. States on being outside in hot temperature weather for a few hours. He also reports on symptoms feeling similar to a previous incident a week ago, where he was evaluated and admitted for chest pain. During admission, he was found with negative cardiac workup and discharge on Lipitor or hyperlipidemia. At time of assessment, patient denies vomiting or having any diarrhea, urinary symptoms, fever, chills, vision or speech changes, or further associated symptoms. Chief Complaint: Abdominal Pain Time Seen by MD: 20:05 Primary Care Provider: NONE Reviewed Notes: Nurses Notes, Medications, Allergies Allergies: Coded Allergies: NO KNOWN ALLERGIES (Unverified , 05/22/25) Home Meds Active Scripts Atorvastatin Calcium (Lipitor) 40 Mg Tab, 1 TAB PO QPM, #90 TAB 1 Refill Prov:GERMAIN CASEY MD 05/26/25 Information Source: Patient Mode of Arrival: Ambulatory Severity: Moderate Timing: Minutes Duration: Since onset Prehospital treatment: None Review of Systems: REVIEW OF SYSTEMS: General: No fever, no chills, or fatigue HEENT: No sore throat, no earache, no congestion, no neck pain. Cardiac: Chest pain. Lightheadedness. No palpitations. Lungs: Shortness of breath, no cough. GI: Abdominal pain, nausea, no vomiting, no diarrhea, no constipation : No dysuria, frequency, or urgency. No hematuria. Musculoskeletal: No joint pain , no joint swelling, no extremity edema. Skin: No rash, no itching. Neuro: Left-sided headache, dizziness no weakness Vital Signs Vital Signs Date Time Temp Pulse Resp B/P (MAP) Pulse Ox O2 Delivery O2 Flow Rate FiO2 06/01/25 23:25 52 16 97 Room Air* 0 21 06/01/25 21:55 98.2 128/84 (99) 98.2 Physical Exam PHYSICAL EXAM: General: Awake, alert and oriented. No acute distress. Skin: Skin in warm, dry and intact. Appropriate color for ethnicity. HEENT: The head is normocephalic and atraumatic. Conjunctivae are clear without exudates or hemorrhage. Sclera is non-icteric. EOM are intact. No signs of nystagmus. Eyelids are normal in appearance without swelling or lesions. Oral mucosa is pink and moist Neck: The neck is supple with normal range of motion. No JVD. Cardiac: Heart rate and rhythm are normal. No murmurs, gallops, or rubs are auscultated. Reported dizziness from going from a seated to a standing position. Respiratory: No signs of respiratory distress. Lung sounds are clear in all lobes bilaterally without rales, rhonchi, or wheezes. Abdominal: Epigastric tenderness. Remaining abdomen is soft, non-tender without distention, guarding or rigidity. Bowel sounds are present and no rmoactive in all four quadrants. Extremities: Upper and lower extremities are atraumatic in appearance without deformity or edema. Neurological: The patient is awake, alert and oriented to person, place, and time with normal speech. Speech is clear. There is no facial asymmetry. Psychiatric: Appropriate mood and affect. Good judgement and insight. Past Medical History PAST MEDICAL HISTORY: High Lipids Surgical History: Denies all surgeries Family History Family History: Family hx of HTN Social History Smoker: Cigarettes Alcohol: Denies ETOH Use Drugs: Denies Drug Use Lives In: Home Was a procedure done? Was a procedure done?: No EKG EKG : Pulse Rate (adult): 58 [place]: Normal Cardiac Rhythm: NSR Block: None Hypertrophy: None ST: Normal Comments No STEMI Differential Dx Considerations may include: Differential diagnoses considered include: Abdominal aortic aneurysm, NV, esophageal rupture, intestinal obstruction, mesenteric ischemia, perforated vi scus or solid organ rupture, CHF with hepatomegaly, pneumonia, abscess, appendicitis, biliary disease, diverticulitis, gastritis, gastroenteritis, hepatitis, hernia, inflammatory bowel disease, pancreatitis, peptic ulcer disease, urinary tract infection, ureteral colic, constipation, GERD, irritable syndrome, abdominal wall pain, nonspecific abdominal pain, herpes zoster, nephrolithiasis. [ ]Also ruptured ectopic , ovarian torsion/cyst, tubo- ovarian abscess, PID, endometriosis, mittleschmerz. X-Ray, Labs, Meds, VS Vital Signs Date Time Temp Pulse Resp B/P (MAP) Pulse Ox O2 Delivery O2 Flow Rate FiO2 7/14/25 23:25 52 16 97 Room Air* 0 21 06/01/25 21:55 98.2 58 20 128/84 (99) 97 98.2 06/01/25 21:55 58 20 97 Room Air 06/01/25 20:19 58 06/01/25 20:11 58 06/01/25 19:55 98.8 66 18 128/71 (90) 99 98.8 Lab Test 06/01/25 20:33 06/01/25 20:20 06/01/25 20:00 Range/Units White Blood Count 6.4 4.4-10.8 10^3/uL Red Blood Count 5.13 4.5-5.90 10^6/uL Hemoglobin 15.7 13.5-17.5 g/dL Hematocrit 44.7 41.0-53.0 % Mean Corpuscular Volume 87.2 80.0-100.0 fL Mean Corpuscular Hemoglobin 30.7 28.0-32.0 pg Mean Corpuscular Hemoglobin Concent 35.2 32.0-36.0 g/dL Red Cell Distribution Width 12.8 11.8-14.3 % Platelet Count 190 140-450 10^3/uL Mean Platelet Volume 9.3 6.9-10.8 fL Neutrophils (%) (Auto) 51.5 37.0-80.0 % Lymphocytes (%) (Auto) 29.9 10.0-50.0 % Monocytes (%) (Auto) 13.0 H 0.0-12.0 % Eosinophils (%) (Auto) 4.9 0.0-7.0 % Basophils (%) (Auto) 0.7 0.0-2.0 % Neutrophils # (Auto) 3.3 1.6-8.6 10 ^3/uL Lymphocytes # (Auto) 1.9 0.4-5.4 10 ^3/uL Monocytes # (Auto) 0.8 0-1.3 10 ^3/uL Eosinophils # (Auto) 0.3 0-0.8 10 ^3/uL Basophils # (Auto) 0 0-0.2 10 ^3/uL Nucleated Red Blood Cells 0.0 % Sodium Level 140 136-145 mmol/L Potassium Level 4.2 3.5-5.1 mmol/L Chloride Level 107 98-107 mmol/L Carbon Dioxide Level 26 20-31 mmol/L Anion Gap 7 5-15 Blood Urea Nitrogen 20 9-23 mg/dL Creatinine 1.23 0.700-1.30 mg/dL Glomerular Filtration Rate Calc 80 >90 mL/min BUN/Creatinine Ratio 16.3 10.0-20.0 Serum Glucose 87 74-106 mg/dL Calcium Level 9.2 8.7-10.4 mg/dL Magnesium Level 2.0 1.6-2.6 mg/dL Total Bilirubin 0.5 0.2-1.0 mg/dL Aspartate Amino Transferase (AST) 20 13-40 U/L Alanine Aminotransferase (ALT) 30 7-40 U/L Alkaline Phosphatase 74 46-116 U/L Troponin I High Sensitivity 13 13 </=54 ng/L Total Protein 7.3 5.7-8.2 g/dL Albumin 5.1 H 3.2-4.8 g/dL Lipase 46 12-53 U/L Urine Color Colorless Yellow Urine Clarity Clear Clear Urine pH 7.0 5.0-9.0 Urine Specific [place] 1.015 1.001-1.035 Urine Protein Negative Negative Urine Ketones Negative Negative Urine Blood Negative Negative /uL Urine Nitrite Negative Negative Urine Bilirubin Negative Negative Urine Urobilinogen Normal Negative mg/dL Urine Leukocyte Esterase Negative Negative /uL Urine RBC <1 0 - 3 /hpf Urine Microscopic WBC < 1 0-3 /HPF Urine Squamous Epithelial Cells None seen <5 /hpf Urine Bacteria None seen None Seen /hpf Urine Glucose Normal Normal mg/dL Current Medications Medications (Trade) Dose Ordered Sig/Alexandra Route Start Time Stop Time Status Last Admin Al Hydrox/Mg Hydrox/Simethicone (Maalox Plus) 30 ml ONCE ONCE PO 06/01/25 20:15 06/01/25 20:16 DC 06/01/25 23:32 Lidocaine HCl (Xylocaine 2% Viscous) 10 ml ONCE ONCE PO 06/01/25 20:15 06/01/25 20:16 DC 06/01/25 23:33 Acetaminophen (Tylenol Tablet Or Capsule) 1,000 mg ONCE ONCE PO 06/01/25 20:15 06/01/25 20:16 DC 06/01/25 23:32 Time of 1ST Reevaluation: 20:35 Reevaluation 1ST: Unchanged Patient Education/Counseling: Need For Follow Up Family Education/Counseling: No Family Present SEPSIS Sepsis Screen Date sepsis recognized/suspect: Jun 01, 2025 Time Sepsis recognized/suspect: 1954 Recent Procedure: No On Antibiotic Therapy: No Respiratory Rate >20: No Heart Rate >90: No Temp<36 C (96.8 F) or >38.3 C: No SBP <90 or MAP <65 mmHG: No New Acute Mental Status Change: No Is the patient on CPAP, BIPAP,: No Physician Orders Electrocardigram (06/01/25 19:56) Vital Signs Date Time Temp Pulse Resp B/P (MAP) Pulse Ox O2 Delivery O2 Flow Rate FiO2 06/01/25 23:25 52 16 97 Room Air* 0 21 06/01/25 21:55 98.2 58 20 128/84 (99) 97 98.2 06/01/25 21:55 58 20 97 Room Air 06/01/25 20:19 58 06/01/25 20:11 58 06/01/25 19:55 98.8 66 18 128/71 (90) 99 98.8 Laboratory Tests Test 06/01/25 20:33 White Blood Count 6.4 10^3/uL (4.4-10.8) Medications Medications Dose Ordered Sig/Alexandra Route Start Time Stop Time Status Last Admin Dose Admin Acetaminophen 1,000 mg ONCE ONCE PO 06/01/25 20:15 06/01/25 20:16 DC 06/01/25 23:32 Al Hydrox/Mg Hydrox/Simethicone 30 ml ONCE ONCE PO 06/01/25 20:15 06/01/25 20:16 DC 06/01/25 23:32 Lidocaine HCl 10 ml ONCE ONCE PO 06/01/25 20:15 06/01/25 20:16 DC 06/01/25 23:33 Departure 1 Departure Time of Disposition: 21:18 Impression: Primary Impression: Epigastric pain Disposition: HOME / SELF CARE / HOMELESS Condition: Stable Additional Instructions: ED DISCHARGE INSTRUCTIONS Instructions: Please read all instructions provided in this packet carefully. Although you have been discharged from the Emergency Department, this does not mean that you have a "clean bill of health". No definitive diagnosis for your symptoms has been made today. It is possible that you are in the process of developing a serious illness. This is why you must return to the ED without fail if any new or worsening symptoms (especially if your symptoms include chest pain, trouble breathing, abdominal pain, fever, headache, confusion, trouble see ing, or trouble walking) It is also very important that you see a primary care provider (PCP) within the next 3-5 days to follow up. If you are unable to get an appointment, return to the ED for re-evaluation. Abdominal Pain: Care Instructions Overview Abdominal pain has many possible causes. Some aren't serious and get better on their own in a few days. Others need more testing and treatment. If your pain continues or gets worse, you need to be rechecked and may need more tests to find out what is wrong. You may need surgery to correct the problem. Don't ignore new symptoms, such as fever, nausea and vomiting, urination prob lems, pain that gets worse, and dizziness. These may be signs of a more serious problem. If you are not getting better, you may need more tests or treatment. The doctor has checked you carefully, but problems can develop later. If you notice any problems or new symptoms, get medical treatment right away. Follow-up care is a goins part of your treatment and safety. Be sure to make and go to all appointments, and call your doctor if you are having problems. It's also a good idea to know your test results and keep a list of the medicines you take. How can you care for yourself at home? Rest until you feel better. To prevent dehydration, drink plenty of fluids. Choose water and other clear liquids until you feel better. If you have kidney, heart, or liver disease and have to limit fluids, talk with your doctor before you increase the amount of fluids you drink. When you feel like eating, start with small amounts. Do not have alcohol, caffeine, or spicy, hot, or high-fat foods for a day or two. Avoid anti-inflammatory medicines such as aspirin, ibuprofen (Advil, Motrin), and naproxen (Aleve). These can cause stomach upset. Talk to your doctor if you take daily aspirin for another health problem. When should you call for help? Call 911 anytime you think you may need emergency care. For example, call if: You passed out (lost consciousness). You pass maroon or very bloody stools. You vomit blood or what looks like coffee grounds. You have severe belly pain. Call your doctor now or seek immediate medical care if: Your pain gets worse, especially if it becomes focused in one area of your belly. You have a new or higher fever. Your stools are black and look like tar, or they have streaks of blood. You have unexpected vaginal bleeding. You have symptoms of a urinary tract infection. These may include: Pain when you urinate. Urinating more often than usual. Blood in your urine. You are dizzy or lightheaded, or you feel like you may faint. Watch closely for changes in your health, and be sure to contact your doctor if: You are not getting better as expected. Credits for Abdominal Pain: Care Instructions Current as of: September 06, 2023 Author: [employer] Staff Clinical Review Board All [employer] education is reviewed by a team that includes physicians, nurses, advanced practitioners, registered dieticians, and other healthcare professionals. Comments MDM: 34-year-old male presented with epigastric pain. No peritoneal signs on abdominal exam. No evidence of acute abdomen at this time. patient is well appearing. Labs show no leukocytosis or elevation of LFTs. Imaging on warranted at this time Patient is afebrile. Patient is not hypotensive. Low suspicion for acute hepatobiliary disease (including acute cholecystitis, acute pancreatitis, PUD (including perforation), acute infectious process (pneumonia, hepatitis, pyelonephritis), acute appendicitis, vascular catastrophe, bowel obstructions, viscous perforation. Presentation not consistent with other acute, emergent causes of abdominal pain at this time. Patient recently admitted to this facility for chest pain and had cardiac workup including serial troponins, EKG, echocardiogram and Cardiology consultation. Results reviewed. Today serial EKG negative for signs of ischemia and serial High sensitivity troponin negative. Presentation not suggestive of acute coronary syndrome, pulmonary embolism or aortic dissection. Patient improved at time of discharge. Patient has not been hypoxic, in respiratory distress or dyspneic during the ED observation. Patient able to ambulate without difficulty. Patient felt stable for discharge to follow up with PCP promptly. Patient advised to return to the ED with any new, worsening or concerning symptoms or inability to follow up with PCP. Extensive evaluation was performed in attempt to identify or rule out: (See differential diagnosis section) The following tests were ordered, and results were reviewed by me and discussed with patient: (See diagnostic results section) The following test were independently interpreted by me: EKG I reviewed and agreed with the following test results read by other providers: Chest x-ray I reviewed the following notes from the pt's past medical encounters: May 22, 2025 and May 24, 2025 encounters for chest pain and acute chest pain, respectively Additional information was gathered from interviewing the following independent historians: N/A Discussion of management or test interpretation with external physician/other qualified health career and guidance counselor: N/A Decision regarding hospitalization or escalation of hospital level of care: Risks and benefits of admission for further treatment of patient's condition was considered however due to patient's stable condition patient will be discharged to follow up closely or return to care for worsening of condition or inability to follow up. Critical Care Note Critical Care Time?: No Stability Stability form required: No Heart Score Heart Score: Heart Score Response (Comments) Value History Slightly Suspicious 0 EKG Normal 0 Age <45 0 Risk Factors 1 or 2 risk factors 1 Troponin Normal limit 0 Total 1 I personally scribed for HERIBERTO NAIR MD ([email or web address]) on 06/01/25 at 20:18. Electronically submitted by Kojo Peacock ([email or web address]). I personally scribed for HERIBERTO NAIR MD ([email or web address]) on 06/01/25 at 20:19. Electronically submitted by Kojo Peacock ([email or web address]). HERIBERTO NAIR MD Jun 01, 2025 20:18
[2025-06-01 20:35] LABS: Urine Protein, UAD Negative (Negative)
[2025-06-01 20:46] LABS: Hematocrit 44.7 % (41.0-53.0); Hemoglobin 15.7 g/dL (13.5-17.5); Mean Corpuscular Hemoglobin 30.7 pg (28.0-32.0); Mean Corpuscular Volume 87.2 fL (80.0-100.0); Nucleated Red Blood Cells % 0.0 %
[2025-06-01 21:10] LABS: Alanine Aminotransferase 30 U/L (7-40); Alkaline Phosphatase 74 U/L (46-116); Anion Gap 7 (5-15); BUN/Creatinine Ratio 16.3 (10.0-20.0); Bilirubin, Total 0.5 mg/dL (0.2-1.0); Blood Urea Nitrogen 20 mg/dL (9-23); Calcium 9.2 mg/dL (8.7-10.4); Carbon Dioxide 26 mmol/L (20-31); Glucose 87 mg/dL (74-106); Lipase 46 U/L (12-53); Magnesium 2.0 mg/dL (1.6-2.6); Potassium 4.2 mmol/L (3.5-5.1); Sodium 140 mmol/L (136-145); Total Protein 7.3 g/dL (5.7-8.2)
[2025-06-01 21:15] LABS: Albumin 5.1 g/dL (3.2-4.8); Chloride 107 mmol/L (98-107)
[2025-06-01 21:55] VITALS: BP 128/84; TEMP 98.2
[2025-06-01 23:25] VITALS: PULSE 52; RESP 16; O2SAT 97
[2025-06-01] MEDS: ACETAMINOPHEN 500 MG TAB or CAP PO ONE (23:32)
[2025-06-01] MEDS: MAALOX PLUS or MAALOX 30 ML PO ONE (23:32)
[2025-06-01] MEDS: LIDOCAINE VISCOUS 2% 15ML UD PO ONE (23:33)
--- NOTE | 2025-06-02 08:49 | ECG ---
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
== END 2025-06-01 23:36 | disposition home or self-care (01) ==
LOC: ER 19:49
DX: R10.13 Epigastric pain (principal); F17.210 Nicotine dependence, cigarettes, uncomplicated; E78.5 Hyperlipidemia, unspecified; Z79.899 Other long term (current) drug therapy
CPT/HCPCS: 36415; 80053; 81001; 83690; 83735; 84484; 85025; 93005

== ENCOUNTER 2025-06-21 19:30 | Emergency (ER) | payer MEDICAID ==
[~2025-06-21] VITALS: Ht 170.2 cm; Wt 85.0 kg
--- NOTE | 2025-06-21 20:07 | ED.PDOC ---
HPI Comments 34 y/o Romanian speaking M presents with c/c left sided chest pain, with associated shortness of breath. Significant history of HLD - On Lipitor and tobacco cigarette use. No significant cardiac history. Unprovoked, atraumatic, and sudden onset of symptoms 30 minutes prior to ED arrival. Pain is sharp in quality and nonradiating. Similar pain in the past, with hospital admission here on 06/01/2025, evaluated by Cardiology found to have ejection fraction of 60%, chest pain was thought to be noncardiac in etiology. Patient was found to have hypercholesterolemia and was discharged on Lipitor. Denies any nausea, vomiting, palpitations, congestion, fever, chills, or further associated symptoms. Chief Complaint: Chest Pain Time Seen by MD: 20:00 Primary Care Provider: NONE Reviewed Notes: Nurses Notes, Medications, Allergies Allergies: Coded Allergies: NO KNOWN ALLERGIES (Unverified , 05/22/25) Home Meds Active Scripts Atorvastatin Calcium (Lipitor) 40 Mg Tab, 1 TAB PO QPM, #90 TAB 1 Refill Prov:GERMAIN CASEY MD 05/26/25 Information Source: Patient Mode of Arrival: Ambulatory Severity: Moderate Timing: Minutes Duration: Since onset Prehospital treatment: None Location: Chest (L) Radiation: No Radiation Quality: Sharp Onset: At Rest Cardiac Risk Factors: Smoker, Hyperlipidemia PE Risk Factors: None History of: Similar pain in past Modifying Factors: Nothing Associated Signs and Symptoms: SOB Past Medical History PAST MEDICAL HISTORY: High Lipids (On Lipitor ) Surgical History: Denies all surgeries Family History Family History: Family hx of HTN Social History Smoker: Cigarettes Alcohol: Denies ETOH Use Drugs: Denies Drug Use Lives In: Home All Other Systems: Reviewed and Negative (Comprehensive review of systems are negative unless otherwise stated in HPI) Physical Exam General Appearance: No Apparent Distress HEENT: Other (Pupils and face symmetric. Moist mucous membranes.) Neck: Full Range of Motion, Normal Inspection Respiratory: Lungs Clear, No Accessory Muscle Use, No Respiratory Distress, Normal Breath Sounds Cardiovascular: No Edema, No JVD, Regular Rate/Rhythm Breast Exam: Deferred Gastrointestinal: Non Tender, Soft Genitalia: Deferred Pelvic: Deferred Rectal: Deferred Extremities: Normal inspection, Normal range of motion, Non-tender, No pedal edema Neurologic: Alert (Oriented x4), Normal Affect, Other (Appears anxious. Ambulatory without difficulty.) Cerebellar Function: NOT DONE Reflexes: NOT DONE Skin: Dry, Normal Color, Warm Lymphatic: NOT DONE EKG EKG : Comments Sinus rhythm, rate 60, normal intervals, normal axis, normal QRS, upsloping ST elevation in leads V2 and 3 consistent with early repolarization pattern Was a procedure done? Was a procedure done?: No CP Differential Dx Differential Diagnosis: N/A Differential Diagnosis: N/A Differential Diagnosis: Angina, Chest Wall Pain, Costochondritis, Esophageal reflux/spasm, Gastritis, Myocardial Infarction, Pericarditis, Pneumonia, Pulmonary Embolus, Other (Anxiety) X-Ray, Labs, Meds, VS Vital Signs Date Time Temp Pulse Resp B/P (MAP) Pulse Ox O2 Delivery O2 Flow Rate FiO2 06/21/25 19:38 97.9 65 16 133/92 95 97.9 06/21/25 19:33 60 Lab Test 06/21/25 21:11 06/21/25 20:07 Range/Units Troponin I High Sensitivity 7 7 </=54 ng/L White Blood Count 8.5 4.4-10.8 10^3/uL Red Blood Count 5.12 4.5-5.90 10^6/uL Hemoglobin 15.9 13.5-17.5 g/dL Hematocrit 44.4 41.0-53.0 % Mean Corpuscular Volume 86.6 80.0-100.0 fL Mean Corpuscular Hemoglobin 31.0 28.0-32.0 pg Mean Corpuscular Hemoglobin Concent 35.7 32.0-36.0 g/dL Red Cell Distribution Width 13.2 11.8-14.3 % Platelet Count 219 140-450 10^3/uL Mean Platelet Volume 9.3 6.9-10.8 fL Neutrophils (%) (Auto) 48.8 37.0-80.0 % Lymphocytes (%) (Auto) 37.9 10.0-50.0 % Monocytes (%) (Auto) 7.3 0.0-12.0 % Eosinophils (%) (Auto) 5.2 0.0-7.0 % Basophils (%) (Auto) 0.8 0.0-2.0 % Neutrophils # (Auto) 4.1 1.6-8.6 10 ^3/uL Lymphocytes # (Auto) 3.2 0.4-5.4 10 ^3/uL Monocytes # (Auto) 0.6 0-1.3 10 ^3/uL Eosinophils # (Auto) 0.4 0-0.8 10 ^3/uL Basophils # (Auto) 0.1 0-0.2 10 ^3/uL Nucleated Red Blood Cells 0.1 % Sodium Level 139 136-145 mmol/L Potassium Level 4.0 3.5-5.1 mmol/L Chloride Level 104 98-107 mmol/L Carbon Dioxide Level 25 20-31 mmol/L Anion Gap 10 5-15 Blood Urea Nitrogen 14 9-23 mg/dL Creatinine 0.89 0.700-1.30 mg/dL Glomerular Filtration Rate Calc 117 >90 mL/min BUN/Creatinine Ratio 15.7 10.0-20.0 Serum Glucose 93 74-106 mg/dL Calcium Level 9.6 8.7-10.4 mg/dL B-Type Natriuretic Peptide 7.13 0-100 pg/mL PROCEDURE(s): CXR1 - CHEST XRAY 1 VIEW REASON: cp sob ORDER NUMBER(s): [id number], ACCESSION NUMBER(s): [id number] EXAM: XY CHEST XRAY 1 VIEW TECHNIQUE: Single frontal chest radiograph CLINICAL HISTORY: cp sob COMPARISON: XY CHEST PORTABLE on DOS: 05/22/25 Findings/Impression: Frontal chest radiograph demonstrates no acute osseous or superficial soft tissue abnormalities. The trachea is midline. The cardiac silhouette and mediastinum are within normal limits. No pneumothorax, pleural effusions, or consolidations. X-Ray, Labs, Meds, VS Comment 34-year-old male with a history of recent admission and Cardiology evaluation with no significant finding other than dyslipidemia complaining of chest pain Vitals remarkable for BP 133/92 Exam unremarkable except for anxious appearance Rhythm strip independently interpreted by me: Sinus rhythm, rate 60, no ectopy. Chest x-ray unremarkable CBC, basic metabolic panel, BNP and 2 serial troponins unremarkable Patient treated with the following in the ED: Toradol 60 mg IM, Ativan 0.5 mg p.o. On re-evaluation, patient states symptoms have improved. Vitals were stable. Patient's EKG from prior admission showed similar early repolarization pattern. He was cleared from a cardiology standpoint with echo showing ejection fraction of 60%. Patient appears stable for discharge with close outpatient follow-up with his primary physician. Time of 1ST Reevaluation: 20:30 Reevaluation 1ST: Unchanged Patient Education/Counseling: Diagnosis, Treatment, Need For Follow Up Family Education/Counseling: No Family Present SEPSIS Sepsis Screen Date sepsis recognized/suspect: Jun 21, 2025 Time Sepsis recognized/suspect: 1939 Recent Procedure: No On Antibiotic Therapy: No Respiratory Rate >20: No Heart Rate >90: No Temp<36 C (96.8 F) or >38.3 C: No SBP <90 or MAP <65 mmHG: No New Acute Mental Status Change: No Is the patient on CPAP, BIPAP,: No Physician Orders Electrocardigram (06/21/25 19:39) Chest Xray 1 View (06/21/25 20:02) Vital Signs Date Time Temp Pulse Resp B/P (MAP) Pulse Ox O2 Delivery O2 Flow Rate FiO2 06/21/25 19:38 97.9 65 16 133/92 95 97.9 06/21/25 19:33 60 Laboratory Tests Test 06/21/25 20:07 White Blood Count 8.5 10^3/uL (4.4-10.8) Departure 1 Departure Time of Disposition: 22:32 Impression: Primary Impression: Chest pain with low risk for cardiac etiology Disposition: HOME / SELF CARE / HOMELESS Condition: Stable Additional Instructions: Your blood tests, including screening test for heart attack and heart failure, were unremarkable. Your chest x-ray was unremarkable. Your EKG was unremarkable. Follow-up with your primary doctor as scheduled. Discharged With: Self Critical Care Note Critical Care Time?: No Stability Stability form required: No Heart Score Heart Score: Heart Score Response (Comments) Value History Slightly Suspicious 0 EKG Repolarization Disturb 1 Age <45 0 Risk Factors 1 or 2 risk factors 1 Troponin Normal limit 0 Total 2 I personally scribed for ANDRES LABOY MD ([email or web address]) on 06/21/25 at 20:06. Electronically submitted by Kojo Peacock ([email or web address]). ANDRES LABOY MD Jun 21, 2025 20:06
[2025-06-21 20:20] LABS: Hematocrit 44.4 % (41.0-53.0); Hemoglobin 15.9 g/dL (13.5-17.5); Mean Corpuscular Hemoglobin 31.0 pg (28.0-32.0); Mean Corpuscular Volume 86.6 fL (80.0-100.0); Nucleated Red Blood Cells % 0.1 %
[2025-06-21 20:28] LABS: Chloride 104 mmol/L (98-107); Potassium 4.0 mmol/L (3.5-5.1); Sodium 139 mmol/L (136-145)
[2025-06-21 20:29] LABS: Anion Gap 10 (5-15); Carbon Dioxide 25 mmol/L (20-31)
[2025-06-21 20:30] LABS: Calcium 9.6 mg/dL (8.7-10.4)
--- NOTE | 2025-06-21 20:32 | DVH ---
EXAM: XY CHEST XRAY 1 VIEW TECHNIQUE: Single frontal chest radiograph CLINICAL HISTORY: cp sob COMPARISON: XY CHEST PORTABLE on DOS: 05/22/25 Findings/Impression: Frontal chest radiograph demonstrates no acute osseous or superficial soft tissue abnormalities. The trachea is midline. The cardiac silhouette and mediastinum are within normal limits. No pneumothorax, pleural effusions, or consolidations.
[2025-06-21 20:35] LABS: BUN/Creatinine Ratio 15.7 (10.0-20.0); Blood Urea Nitrogen 14 mg/dL (9-23); Glucose 93 mg/dL (74-106)
[2025-06-21] MEDS: LORazepam 0.5 MG TAB PO ONE (23:43)
[2025-06-21] MEDS: KETOROLAC TROMETH 60MG/2ML VIAL IM ONE (23:43)
[2025-06-21 23:49] VITALS: BP 133/67; PULSE 79; RESP 16; TEMP 98.6; O2SAT 98
--- NOTE | 2025-06-23 06:37 | ECG ---
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
== END 2025-06-21 23:51 | disposition home or self-care (01) ==
LOC: ER 19:30
DX: R07.89 Other chest pain (principal); F17.210 Nicotine dependence, cigarettes, uncomplicated; E78.5 Hyperlipidemia, unspecified; Z79.899 Other long term (current) drug therapy
CPT/HCPCS: 36415; 71045; 80048; 83880; 84484; 85025; 93005; 96372; 99285; J1885

== ENCOUNTER 2025-06-24 22:29 | Emergency (ER) | payer MEDICAID ==
[~2025-06-24] VITALS: Ht 170.2 cm; Wt 80.9 kg
--- NOTE | 2025-06-24 22:49 | ED.PDOC ---
HPI Comments 34-year-old male with a history of hyperlipidemia presents to the ED with a chief complaint of left-sided chest pain with the associated radiation to the back, and palpitations. Patient states that his pain started approximately 20 minutes prior to arrival to the ED. 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 Patient's EKG was noted to be [address] changes. Patient denies any nausea, vomiting, diarrhea, dysuria, hematochezia, headache, blurry vision, weakness, or any other associated symptoms, modifiers at this time. PHYSICAL EXAM: General: Awake, alert and oriented. No acute distress. Skin: Skin in warm, dry and intact. Appropriate color for ethnicity. HEENT: The head is normocephalic and atraumatic. Conjunctivae are clear without exudates or hemorrhage. Sclera is non-icteric. EOM are intact. No signs of nystagmus. Eyelids are normal in appearance without swelling or lesions. Oral mucosa is pink and moist Neck: The neck is supple with normal range of motion. No JVD. Cardiac: Heart rate and rhythm are normal. No murmurs, gallops, or rubs are auscultated. Respiratory: No signs of respiratory distress. Lung sounds are clear in all lobes bilaterally without rales, rhonchi, or wheezes. Abdominal: Abdomen is soft, non-tender without distention, guarding or rigidity. Bowel sounds are present and normoactive in all four quadrants. Extremities: Upper and lower extremities are atraumatic in appearance without deformity or edema. Neurological: The patient is awake, alert and oriented to person, place, and t ugo with normal speech. Speech is clear. There is no facial asymmetry. Psychiatric: Appropriate mood and affect. Good judgement and insight. REVIEW OF SYSTEMS: General: No fever, no chills, or fatigue HEENT: No sore throat, no earache, no congestion, no neck pain. Cardiac: Chest pain, palpitations Lungs: No shortness of breath, no cough. GI: No nausea, no vomiting, no diarrhea, no constipation, no abdominal pain : No dysuria, frequency, or urgency. No hematuria. Musculoskeletal: No joint pain , no joint swelling, no extremity edema. + back pain Skin: No rash, no itching. Neuro: No headache, no dizziness, no weakness Chief Complaint: Chest Pain Time Seen by MD: 22:45 Primary Care Provider: NONE Reviewed Notes: Nurses Notes, Medications, Allergies Allergies: Coded Allergies: NO KNOWN ALLERGIES (Unverified , 05/22/25) Home Meds Active Scripts Atorvastatin Calcium (Lipitor) 40 Mg Tab, 1 TAB PO QPM, #90 TAB 1 Refill Prov:GERMAIN CAESY MD 05/26/25 Information Source: Patient Mode of Arrival: Ambulatory Severity: Moderate Timing: Minutes Duration: Since onset, Minutes Prehospital treatment: None Location: Chest (L) Radiation: Back Quality: Sharp, Pressure Onset: At Rest Cardiac Risk Factors: Hyperlipidemia PE Risk Factors: None History of: None Modifying Factors: Nothing Associated Signs and Symptoms: Palpitations Past Medical History PAST MEDICAL HISTORY: High Lipids Surgical History: Denies all surgeries Family History Family History: Family hx of HTN Social History Smoker: Cigarettes Alcohol: Denies ETOH Use Drugs: Denies Drug Use Lives In: Home EKG EKG : Pulse Rate (adult): 79 [place]: Normal Cardiac Rhythm: NSR Block: None Hypertrophy: None ST: Normal Comments non benign ST changes. Was a procedure done? Was a procedure done?: No CP Differential Dx Differential Diagnosis: Angina, Electrolyte Disorder, Pulmonary Embolus Differential Diagnosis: N/A Differential Diagnosis: Angina, Chest Wall Pain, Esophageal reflux/spasm, Gastritis, Pneumothorax, Pulmonary Embolus X-Ray, Labs, Meds, VS Vital Signs Date Time Temp Pulse Resp B/P (MAP) Pulse Ox O2 Delivery O2 Flow Rate FiO2 06/25/25 01:57 97.7 56 17 126/89 (101) 98 97.7 06/25/25 01:57 56 17 98 Room Air 06/25/25 01:41 52 06/24/25 23:33 60 06/24/25 22:48 79 06/24/25 22:32 73 06/24/25 22:31 98.9 69 16 120/71 97 98.9 Lab Test 06/25/25 01:36 06/25/25 00:00 06/24/25 23:25 06/24/25 22:38 Range/Units Troponin I High Sensitivity 7 7 7 </=54 ng/L Urine Color Light-yellow Yellow Urine Clarity Clear Clear Urine pH 6.0 5.0-9.0 Urine Specific [place] 1.021 1.001-1.035 Urine Protein Negative Negative Urine Ketones Negative Negative Urine Blood Negative Negative /uL Urine Nitrite Negative Negative Urine Bilirubin Negative Negative Urine Urobilinogen Normal Negative mg/dL Urine Leukocyte Esterase Negative Negative /uL Urine RBC None seen 0 - 3 /hpf Urine Microscopic WBC < 1 0-3 /HPF Urine Squamous Epithelial Cells None seen <5 /hpf Urine Bacteria None seen None Seen /hpf Urine Mucus Few None Seen Urine Glucose Normal Normal mg/dL White Blood Count 12.1 #H 4.4-10.8 10^3/uL Red Blood Count 4.85 4.5-5.90 10^6/uL Hemoglobin 14.9 13.5-17.5 g/dL Hematocrit 41.7 41.0-53.0 % Mean Corpuscular Volume 86.1 80.0-100.0 fL Mean Corpuscular Hemoglobin 30.8 28.0-32.0 pg Mean Corpuscular Hemoglobin Concent 35.7 32.0-36.0 g/dL Red Cell Distribution Width 13.2 11.8-14.3 % Platelet Count 201 140-450 10^3/uL Mean Platelet Volume 9.2 6.9-10.8 fL Neutrophils (%) (Auto) 60.3 37.0-80.0 % Lymphocytes (%) (Auto) 27.4 10.0-50.0 % Monocytes (%) (Auto) 7.0 0.0-12.0 % Eosinophils (%) (Auto) 4.5 0.0-7.0 % Basophils (%) (Auto) 0.8 0.0-2.0 % Neutrophils # (Auto) 7.3 1.6-8.6 10 ^3/uL Lymphocytes # (Auto) 3.3 0.4-5.4 10 ^3/uL Monocytes # (Auto) 0.8 0-1.3 10 ^3/uL Eosinophils # (Auto) 0.5 0-0.8 10 ^3/uL Basophils # (Auto) 0.1 0-0.2 10 ^3/uL Nucleated Red Blood Cells 0.0 % Sodium Level 141 136-145 mmol/L Potassium Level 3.7 3.5-5.1 mmol/L Chloride Level 107 98-107 mmol/L Carbon Dioxide Level 25 20-31 mmol/L Anion Gap 9 5-15 Blood Urea Nitrogen 13 9-23 mg/dL Creatinine 0.98 0.700-1.30 mg/dL Glomerular Filtration Rate Calc 105 >90 mL/min BUN/Creatinine Ratio 13.3 10.0-20.0 Serum Glucose 105 74-106 mg/dL Calcium Level 9.3 8.7-10.4 mg/dL B-Type Natriuretic Peptide 17.94 0-100 pg/mL Current Medications Medications (Trade) Dose Ordered Sig/Alexandra Route Start Time Stop Time Status Last Admin Aspirin 324 mg ONCE ONCE PO 06/24/25 22:45 06/24/25 22:46 DC 06/25/25 01:56 PATIENT: LAURIE CHIANG ACCT: [id number] UNIT: [id number] : 1990 LOC: ER ROOM / BED: / AGE / SEX: 34 / M ADM STATUS: REG ER SERVICE 30 ORDERING PHYSICIAN: HERIBERTO NAIR MD PROCEDURE(s): CXR1 - CHEST XRAY 1 VIEW REASON: cp ORDER NUMBER(s): [id number], ACCESSION NUMBER(s): [id number] CHEST RADIOGRAPH Indication: cp Technique: 1 view Comparison: XY CHEST XRAY 1 VIEW on DOS: 06/21/25, XY CHEST PORTABLE on DOS: 05/22/25 FINDINGS: Lines and Tubes: None Lungs: Mildly decreased lung volumes with vascular crowding. No focal consolidation. Pleura: No effusion or pneumothorax. Cardiomediastinal contours: Unremarkable. Other: No acute osseous abnormality. IMPRESSION: 1. No acute cardiopulmonary abnormality. Time of 1ST Reevaluation: 11:15 Reevaluation 1ST: Unchanged Patient Education/Counseling: Need For Follow Up Family Education/Counseling: No Family Present SEPSIS Sepsis Screen Date sepsis recognized/suspect: Jun 24, 2025 Time Sepsis recognized/suspect: 2230 Recent Procedure: No On Antibiotic Therapy: No Respiratory Rate >20: No Heart Rate >90: No Temp<36 C (96.8 F) or >38.3 C: No SBP <90 or MAP <65 mmHG: No New Acute Mental Status Change: No Is the patient on CPAP, BIPAP,: No Physician Orders Electrocardigram (06/24/25 22:31) Electrocardigram (06/24/25 23:31) Electrocardigram (06/25/25 01:31) Chest Xray 1 View (06/24/25 22:31) Vital Signs Q1HR (06/24/25 22:31) Vital Signs Date Time Temp Pulse Resp B/P (MAP) Pulse Ox O2 Delivery O2 Flow Rate FiO2 06/25/25 01:57 97.7 56 17 126/89 (101) 98 97.7 06/25/25 01:57 56 17 98 Room Air 06/25/25 01:41 52 06/24/25 23:33 60 06/24/25 22:48 79 06/24/25 22:32 73 06/24/25 22:31 98.9 69 16 120/71 97 98.9 Laboratory Tests Test 06/24/25 22:38 White Blood Count 12.1 10^3/uL (4.4-10.8) #H Medications Medications Dose Ordered Sig/Alexandra Route Start Time Stop Time Status Last Admin Dose Admin Aspirin 324 mg ONCE ONCE PO 06/24/25 22:45 06/24/25 22:46 DC 06/25/25 01:56 Departure 1 Departure Time of Disposition: 02:20 Impression: Primary Impression: Chest pain Disposition: 01 HOME / SELF CARE / HOMELESS Condition: Stable Additional Instructions: INSTRUCCIONES DE DEBBIE DE Urgencias Instrucciones: Mei atentamente todas las instrucciones proporcionadas en amanda paquete. Mantenga ang elba con el cardilogo esta semana. Aunque le hayan dado el debbie del Departamento de Emergencias, esto no significa que tenga un "certificado de buena riri". [] Hoy no se ko realizado ningn diagnstico definitivo para ren sntomas. Es posible que ests en proceso de desarrollar jonathan enfermedad grave. Es por eso que debe regresar al servicio de urgencias sin falta si presenta algn sntoma nuevo o que empeora (especialmente si ren sntomas incluyen dolor en el pecho, dificultad para respirar, dolor abdominal, fiebre, dolor de magi, confusin, dificultad para erica o caminar). Tambin es muy importante que consulte a un mdico de atencin primaria dentro de los prximos 3 a 5 mcqueen para realizar un seguimiento. Si no puede conseguir jonathan elba, regrese al servicio de urgencias para jonathan nueva evaluacin. Dolor en el pecho: Instrucciones de cuidado Tabla de contenido Descripcin general Pediatric Geneticist puedes cuidarte en casa? Cundo debes pedir ayuda? Crditos Descripcin general Hay muchas cosas que pueden causar dolor en el pecho. Algunas no son graves y mejoran por s solas en unos mcqueen. Sin embargo, algunos tipos de dolor en el pecho requieren ms pruebas y tratamiento. Es posible que ang mdico le haya recomendado jonathan visita de seguimiento en los prximos mcqueen. Si no mejora, es posible que necesite ms pruebas o tratamiento. Aunque ang mdico le haya dado de debbie, debe estar atento a cualquier problema. El mdico le realiz jonathan revisin exhaustiva, celestino a veces pueden surgir problemas ms adelante. Si presenta sntomas nuevos o si estos no mejoran, busque atencin mdica de inmediato. Si tiene un dolor o presin en el pecho peor o diferente que dura ms de 5 minutos o si se desmay (perdi el conocimiento), llame al 911 o busque otra ayuda de emergencia de inmediato. Jonathan visita mdica es solo un paso en ang tratamiento. Incluso si se siente mejor, debe seguir las recomendaciones de ang mdico, jakob asistir a todas las citas de seguimiento sugeridas y neo los medicamentos exactamente jakob se le indique. [place] le ayudar a recuperarse y a prevenir problemas futuros. Pediatric Geneticist puedes cuidarte en casa? Descansa hasta que te sientas mejor. [place] ang medicamento exactamente jakob se lo recetaron. Llame a ang mdico si raghu que tiene algn problema con ang medicamento. No conduzca despus de neo un analgsico recetado. Cundo debes pedir ayuda? Llame al si: Te desmayaste (perdiste el conocimiento). Tienes dificultad grave para respirar. Tiene sntomas de un ataque cardaco. Estos pueden incluir: Dolor o presin en el pecho, o jonathan sensacin extraa en el pecho. Transpiracin. Dificultad para respirar. Nuseas o vmitos. Dolor, presin o jonathan sensacin extraa en la espalda, el sean, la mandbula o la parte superior del abdomen o en [place] o ambos hombros o brazos. Mareo o debilidad repentina. Un ritmo cardaco rpido o irregular. Despus de llamar al , el operador podra indicarle que mastique jonathan aspirina para adultos o de 2 a 4 aspirinas de dosis baja. Espere la ambulancia. No intente conducir. Llame a ang mdico ahora o busque atencin mdica inmediata si: Tienes alguna dificultad para respirar. Tiene un dolor en el pecho nuevo o diferente. Se siente mareado o aturdido o jakob si se pudiera desmayar. Preste atencin de cerca a los cambios en ang riri y asegrese de comunicarse con ang mdico si no mejora jakob se esperaba. Crditos para el dolor de pecho: Instrucciones de cuidado Actualizado al: 2023 Autor: Personal de [employer] [place] de revisin clnica Toda la educacin de [employer] es revisada por un equipo que incluye mdicos, enfermeras, profesionales avanzados, dietistas registrados y otros profesionales de la riri. Comments 34-year-old male with a chest pain EKG negative for signs of ischemia. High sensitivity troponin negative. CXR shows no acute process. Presentation not suggestive of acute coronary syndrome, pulmonary embolism or aortic dissection. Patient improved at time of discharge. Patient has not been hypoxic, in respiratory distress or dyspneic during the ED observation. Patient able to ambulate without difficulty. Patient felt stable for discharge to follow up with Cardiology this week Patient advised to return to the ED with any new, worsening or concerning symptoms or inability to follow up with PCP. Critical Care Note Critical Care Time?: No Stability Stability form required: No Heart Score Heart Score: Heart Score Response (Comments) Value History N/A 0 EKG N/A 0 Age N/A 0 Risk Factors N/A 0 Troponin N/A 0 Total 0 I personally scribed for HERIBERTO NAIR MD ([email or web address]) on 06/24/25 at 22:48. Electronically submitted by Refugio Otero ([email or web address]). I personally scribed for HERIBERTO NAIR MD ([email or web address]) on 06/24/25 at 23:27. Electronically submitted by Refugio Otero ([email or web address]). HERIBERTO NAIR MD Jun 24, 2025 22:48
[2025-06-24 22:56] LABS: Hematocrit 41.7 % (41.0-53.0); Hemoglobin 14.9 g/dL (13.5-17.5); Mean Corpuscular Hemoglobin 30.8 pg (28.0-32.0); Mean Corpuscular Volume 86.1 fL (80.0-100.0); Nucleated Red Blood Cells % 0.0 %
[2025-06-24 23:06] LABS: Potassium 3.7 mmol/L (3.5-5.1); Sodium 141 mmol/L (136-145)
[2025-06-24 23:07] LABS: Anion Gap 9 (5-15); Carbon Dioxide 25 mmol/L (20-31)
--- NOTE | 2025-06-24 23:07 | DVH ---
CHEST RADIOGRAPH Indication: cp Technique: 1 view Comparison: XY CHEST XRAY 1 VIEW on DOS: 06/21/25, XY CHEST PORTABLE on DOS: 05/22/25 FINDINGS: Lines and Tubes: None Lungs: Mildly decreased lung volumes with vascular crowding. No focal consolidation. Pleura: No effusion or pneumothorax. Cardiomediastinal contours: Unremarkable. Other: No acute osseous abnormality. IMPRESSION: 1. No acute cardiopulmonary abnormality.
[2025-06-24 23:08] LABS: Calcium 9.3 mg/dL (8.7-10.4)
[2025-06-24 23:12] LABS: Glucose 105 mg/dL (74-106)
[2025-06-24 23:13] LABS: BUN/Creatinine Ratio 13.3 (10.0-20.0); Blood Urea Nitrogen 13 mg/dL (9-23)
[2025-06-24 23:20] LABS: Chloride 107 mmol/L (98-107)
[2025-06-25 00:24] LABS: Urine Protein, UAD Negative (Negative)
[2025-06-25 01:57] VITALS: BP 126/89; TEMP 97.7
[2025-06-25 02:46] VITALS: PULSE 56; RESP 18; O2SAT 97
--- NOTE | 2025-06-26 14:59 | ECG ---
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
--- NOTE | 2025-06-29 07:36 | ECG ---
[facility] Test Date: 2025-06-24 Test Time: 22:32:28 Pat Name: LAURIE HERBERT Department: ED Room: Gender: M Hedis Abstractor: ROXANNE : 1990 Requested By: HERIBERTO NAIR Order Number: [id number] Reading MD: Abelardo Benjamin Measurements Intervals [place] Rate: 73 P: 88 AL: 193 QRS: 96 QRSD: 90 T: -15 QT: 382 QTc: 421 Interpretive Statements Sinus rhythm Lateral infarct, acute Borderline ST elevation, anterior leads Electronically Signed On 06-29-2025 17:58:56 PDT by Abelardo Benjamin Please click the below link to view image of tracing.
--- NOTE | 2025-06-29 14:31 | ECG ---
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
== END 2025-06-25 02:45 | disposition home or self-care (01) ==
LOC: ER 22:29
DX: R07.89 Other chest pain (principal); R00.2 Palpitations; M54.9 Dorsalgia, unspecified; E78.5 Hyperlipidemia, unspecified; F17.210 Nicotine dependence, cigarettes, uncomplicated; Z79.899 Other long term (current) drug therapy
CPT/HCPCS: 36415; 71045; 80048; 81001; 83880; 84484; 85025; 93005

== ENCOUNTER 2025-07-19 17:03 | Inpatient (IN) | payer MEDICAID ==
[~2025-07-19] VITALS: Ht 170.2 cm; Wt 87.0 kg
--- NOTE | 2025-07-19 17:26 | ED.PDOC ---
HPI Comments 34 y/o M, with PMHx of HLD presents to the ED for CC of chest pain. Patient states, he has been experiencing intermittent non-radiating left sided chest pain x2days which, has now worsened as of 1100 this morning (07/19/25). Patient relays, associated symptoms of nausea and shortness of breath. Patient reports, he has experienced similar symptoms in the past being [facility]x [facility], May[facility]. Patient denies palpitations, numbness, tingling, vomiting, or abdominal pain. No other symptoms or modifying factors are present at this time. Chief Complaint: Chest Pain Time Seen by MD: 17:20 Primary Care Provider: NONE Reviewed Notes: Nurses Notes, Swim Instructor Notes, Medications, Allergies Allergies: Coded Allergies: NO KNOWN ALLERGIES (Unverified , 05/22/25) Home Meds Active Scripts Atorvastatin Calcium (Lipitor) 40 Mg Tab, 1 TAB PO QPM, #90 TAB 1 Refill Prov:GERMAIN CASEY MD 05/26/25 Information Source: Patient Mode of Arrival: Ambulatory Severity: Moderate Timing: Days Duration: Since onset Prehospital treatment: None Location: Chest (L) Radiation: No Radiation Onset: At Rest Cardiac Risk Factors: Hyperlipidemia PE Risk Factors: None History of: Similar pain in past Modifying Factors: Nothing Associated Signs and Symptoms: SOB Past Medical History PAST MEDICAL HISTORY: High Lipids Surgical History: Denies all surgeries Family History Family History: Family hx of HTN Social History Smoker: Cigarettes Alcohol: Denies ETOH Use Drugs: Denies Drug Use Lives In: Home Constitutional: denies: chills, diaphoresis, fatigue, fever, malaise, sweats, weakness, others EENTM: denies: blurred vision, double vision, ear bleeding, ear discharge, ear drainage, ear pain, ear ringing, eye pain, eye redness, hearing loss, mouth pain, mouth swelling, nasal discharge, nose bleeding, nose congestion, nose pain, photophobia, tearing, throat pain, throat swelling, voice changes, others Respiratory: reports: shortness of breath; denies: cough, hemoptysis, orthopnea, SOB at rest, SOB with excertion, stridor, wheezing, others Cardiovascular: reports: chest pain; denies: dizzy spells, diaphoresis, Dyspnea on exertion, edema, irregular heart beat, left arm pain, lightheadedness, palpitations, PND, syncope, others Gastrointestinal: reports: nausea; denies: abdomen distended, abdominal pain, blood streaked bowels, constipated, diarrhea, dysphagia, difficulty swallowing, hematemesis, melena, poor appetite, poor fluid intake, rectal bleeding, rectal pain, vomiting, others Genitourinary: denies: burning, dysuria, flank pain, frequency, hematuria, incontinence, penile discharge, penile sore, pain, testicle pain, testicle swelling, urgency, others Neurological: denies: dizziness, fainting, headache, left sided numbness, left sided weakness, numbness, paresthesia, pre-existing deficit, right sided numbness, right sided weakness, seizure, speech problems, tingling, tremors, weakness, others Musculoskeletal: denies: back pain, gout, joint pain, joint swelling, muscle pain, muscle stiffness, neck pain, others Integumetry: denies: bruises, change in color, change in hair/nails, dryness, laceration, lesions, lumps, rash, wounds, others Allergic/Immunocompromised: denies: Difficulty Healing, Frequent Infections, Hives, Itching, others Hematologic/Lymphatic: denies: anemia, blood clots, easy bleeding, easy bruising, swollen glands, others Endocrine: denies: excessive hunger, excessive sweating, excessive thirst, excessive urination, flushing, intolerance to cold, intolerance to heat, unexp lained weight gain, unexplained weight loss, others Psychiatric: denies: anxiety, bipolar disorder, depression, hopeless, panic disorder, schizophrenia, sleepless, suicidal, others All Other Systems: Reviewed and Negative Physical Exam General Appearance: Moderate Distress HEENT: Normal ENT Inspection, Pharynx Normal, TMs Normal Neck: Full Range of Motion, Non-Tender, Normal, Normal Inspection Respiratory: Chest Non-Tender, Lungs Clear, No Accessory Muscle Use, No Respiratory Distress, Normal Breath Sounds Cardiovascular: No Edema, No JVD, No Murmur, No Gallop, Normal Peripheral Pulses, Regular Rate/Rhythm Breast Exam: Deferred Gastrointestinal: No Organomegaly, Non Tender, No Pulsatile Mass, Normal Bowel Sounds, Soft Genitalia: Deferred Pelvic: Deferred Rectal: Deferred Extremities: No calf tenderness, Normal capillary refill, Normal inspection, Normal range of motion, Non-tender, No pedal edema Musculoskeletal : Apperance: Normal Neurologic: Alert, 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 Was a procedure done?: No CP Differential Dx Differential Diagnosis: Angina Differential Diagnosis: HTN Essential, HTN Accelerated Differential Diagnosis: Myocardial Infarction X-Ray, Labs, Meds, VS Vital Signs Date Time Temp Pulse Resp B/P (MAP) Pulse Ox O2 Delivery O2 Flow Rate FiO2 07/19/25 18:07 63 07/19/25 17:26 58 07/19/25 17:11 58 07/19/25 17:04 97.9 69 15 144/94 100 97.9 Lab Test 07/19/25 18:24 07/19/25 17:24 Range/Units Troponin I High Sensitivity 21 14 </=54 ng/L White Blood Count 6.9 4.4-10.8 10^3/uL Red Blood Count 5.04 4.5-5.90 10^6/uL Hemoglobin 15.6 13.5-17.5 g/dL Hematocrit 43.4 41.0-53.0 % Mean Corpuscular Volume 86.0 80.0-100.0 fL Mean Corpuscular Hemoglobin 31.0 28.0-32.0 pg Mean Corpuscular Hemoglobin Concent 36.0 32.0-36.0 g/dL Red Cell Distribution Width 13.5 11.8-14.3 % Platelet Count 204 140-450 10^3/uL Mean Platelet Volume 9.3 6.9-10.8 fL Neutrophils (%) (Auto) 55.3 37.0-80.0 % Lymphocytes (%) (Auto) 32.4 10.0-50.0 % Monocytes (%) (Auto) 6.9 0.0-12.0 % Eosinophils (%) (Auto) 4.4 0.0-7.0 % Basophils (%) (Auto) 1.0 0.0-2.0 % Neutrophils # (Auto) 3.8 1.6-8.6 10 ^3/uL Lymphocytes # (Auto) 2.2 0.4-5.4 10 ^3/uL Monocytes # (Auto) 0.5 0-1.3 10 ^3/uL Eosinophils # (Auto) 0.3 0-0.8 10 ^3/uL Basophils # (Auto) 0.1 0-0.2 10 ^3/uL Nucleated Red Blood Cells 0.1 % D-Dimer, Quantitative < 0.19 0.0-0.49 mg/L FEU Sodium Level 141 136-145 mmol/L Potassium Level 4.4 3.5-5.1 mmol/L Chloride Level 104 98-107 mmol/L Carbon Dioxide Level 28 20-31 mmol/L Anion Gap 9 5-15 Blood Urea Nitrogen 11 9-23 mg/dL Creatinine 0.91 0.700-1.30 mg/dL Glomerular Filtration Rate Calc 115 >90 mL/min BUN/Creatinine Ratio 12.1 10.0-20.0 Serum Glucose 93 74-106 mg/dL Calcium Level 10.0 8.7-10.4 mg/dL IV Hep-Lock was established The CBC and chemistry panel are within normal limits The D-dimer is negative The troponin level x1 is negative We did another troponin level which is also within normal range The chest x-ray shows no acute disease at this time The patient is still having some persistent pain The patient was given aspirin here in the emergency department's The patient is being admitted We did contact Dr. Leon say after reviewing the EKG as it read a possible acute MO The patient is being admitted and the dumper bulk system will follow him as well. Images Reviewed?: Images reviewed and evaluated by me Time of 1ST Reevaluation: 17:50 Reevaluation 1ST: Unchanged Patient Education/Counseling: Diagnosis, Treatment, Prognosis Family Education/Counseling: No Family Present SEPSIS Sepsis Screen Date sepsis recognized/suspect: Jul 19, 2025 Time Sepsis recognized/suspect: 1705 Recent Procedure: No On Antibiotic Therapy: No Respiratory Rate >20: No Heart Rate >90: No Temp<36 C (96.8 F) or >38.3 C: No SBP <90 or MAP <65 mmHG: No New Acute Mental Status Change: No Is the patient on CPAP, BIPAP,: No Physician Orders Electrocardigram (07/19/25 17:07) Troponin-I Hs (07/19/25 20:07) Electrocardigram (07/19/25 18:07) Electrocardigram (07/19/25 20:07) Heplock Iv (07/19/25 17:22) Chest Two Views Routine (07/19/25 17:22) Urinalysis (07/19/25 17:22) Vital Signs Date Time Temp Pulse Resp B/P (MAP) Pulse Ox O2 Delivery O2 Flow Rate FiO2 07/19/25 18:07 63 07/19/25 17:26 58 07/19/25 17:11 58 07/19/25 17:04 97.9 69 15 144/94 100 97.9 Laboratory Tests Test 07/19/25 17:24 White Blood Count 6.9 10^3/uL (4.4-10.8) Departure 1 Departure Time of Disposition: 19:41 Impression: Primary Impression: Acute chest pain Additional Impression: Acute coronary syndrome Disposition: ADMITTED INPATIENT Admit to: [facility] Condition: Fair Critical Care Note Critical Care Time?: No Stability Stability form required: Yes Unstable for transfer: Telemetry monitoring (Telemetry monitoring required), ED Physician Assesment (Clinical assesment) Heart Score Heart Score: Heart Score Response (Comments) Value History Moderate Suspicious [address]-Deviation 2 Age <45 0 Risk Factors 1 or 2 risk factors 1 Troponin Normal limit 0 Total 4 I personally scribed for ZENY DIALLO MD ([email or web address]) on 07/19/25 at 17:26. Electronically submitted by Jessica Harley ([email or web address]). I personally scribed for ZENY DIALLO MD ([email or web address]) on 07/19/25 at 17:32. Electronically submitted by Jessica Harley [email or web address]). ZENY DIALLO MD Jul 19, 2025 17:26
[2025-07-19 17:58] LABS: Chloride 104 mmol/L (98-107); Potassium 4.4 mmol/L (3.5-5.1); Sodium 141 mmol/L (136-145)
[2025-07-19 17:59] LABS: Anion Gap 9 (5-15); Calcium 10.0 mg/dL (8.7-10.4); Carbon Dioxide 28 mmol/L (20-31)
[2025-07-19 18:00] LABS: Hematocrit 43.4 % (41.0-53.0); Hemoglobin 15.6 g/dL (13.5-17.5); Mean Corpuscular Hemoglobin 31.0 pg (28.0-32.0); Mean Corpuscular Volume 86.0 fL (80.0-100.0); Nucleated Red Blood Cells % 0.1 %
[2025-07-19 18:04] LABS: BUN/Creatinine Ratio 12.1 (10.0-20.0); Blood Urea Nitrogen 11 mg/dL (9-23); Glucose 93 mg/dL (74-106)
--- NOTE | 2025-07-19 18:11 | DVH ---
XY CHEST TWO VIEWS ROUTINE INDICATION: CP TECHNIQUE: Two views of the chest COMPARISON: XY CHEST XRAY 1 VIEW on DOS: 06/24/25 FINDINGS/IMPRESSION: LUNGS: No pleural effusion, consolidation, or pneumothorax MEDIASTINUM: Unremarkable BONES: No acute osseous abnormality OTHER: None
[2025-07-19] MEDS ORDERED: NITROGLYCERIN 0.4 MG SL TAB SL PRN (22:30)
[2025-07-19] MEDS ORDERED: ACETAMINOPHEN 325 MG TAB PO PRN (22:30)
[2025-07-19] MEDS ORDERED: MORPHINE SULFATE INJ 2 MG/ml SYRG IV PRN (22:30)
[2025-07-19] MEDS ORDERED: ONDANSETRON HCL 4 MG/2 ML VIAL IV PRN (22:30)
[2025-07-19] MEDS: MORPHINE SULFATE INJ 2 MG/ml SYRG IV ONE (22:47)
[2025-07-19] MEDS: ONDANSETRON HCL 4 MG/2 ML VIAL IV ONE (22:48)
[2025-07-20] VITALS (8 sets, daily range): BP systolic 111–128; BP diastolic 68–82; PULSE 54–64; RESP 17–20; TEMP 97.8–98.4; O2SAT 96–100
[2025-07-20 04:49] LABS: Hematocrit 42.6 % (41.0-53.0); Hemoglobin 15.0 g/dL (13.5-17.5); Mean Corpuscular Hemoglobin 30.4 pg (28.0-32.0); Mean Corpuscular Volume 86.1 fL (80.0-100.0); Nucleated Red Blood Cells % 0.1 %
[2025-07-20 05:00] LABS: Alanine Aminotransferase 27 U/L (7-40); Alkaline Phosphatase 63 U/L (46-116); Anion Gap 9 (5-15); BUN/Creatinine Ratio 9.6 (10.0-20.0); Bilirubin, Total 0.3 mg/dL (0.2-1.0); Calcium 9.3 mg/dL (8.7-10.4); Carbon Dioxide 27 mmol/L (20-31); Chloride 104 mmol/L (98-107); Glucose 93 mg/dL (74-106); Potassium 3.8 mmol/L (3.5-5.1); Sodium 140 mmol/L (136-145); Total Protein 7.4 g/dL (5.7-8.2)
[2025-07-20 05:01] LABS: Albumin 4.9 g/dL (3.2-4.8); Blood Urea Nitrogen 8 mg/dL (9-23)
--- NOTE | 2025-07-20 06:34 | DVHHPRES ---
History of Present Illness Resident Creating Document: CONNIE SORENSON RESIDENT History of Present Illness Kojo Costello is a 34-year-old male with a history of dyslipidemia and recurrent chest pain who presented to the ER with chest pain ongoing for the past two days. The pain began while he was at rest, initially rated 7/10 and currently 2/10 in intensity, located on the left side of the chest and radiating to the neck and left arm. It is described as continuous, worsened by walking or climbing stairs, and relieved with rest. He also experienced shortness of breath, trembling, nausea, and palpitations during the onset of pain. The patient has had four prior hospital visits this year for similar complaints and was previously told he may have a blocked artery. He was briefly placed on aspirin, which was later discontinued, and is currently awaiting an outpatient stress test. Past Medical History (PMH): dyslipidemia Past Surgical History (PSH): patient denies any surgical history OBGYN Hx in Females: nonrelevant Family history (FH): hypertension in mother Alcohol: Denies alcohol use Smoking /Vapin pack year smoking history Recreational Drugs: history of cocaine and methamphetamine use-stopped 4 years ago Residence: Lives with aunt Home Medications: Nil Allergies: no known allergies Review of Systems Review of Systems General: patient denies fever, fatigue, weaknes, sweating, any recent changes in appetite and weight HEENT: No headaches, visiual changes, hearing loss, tinnitus, nasal congestion and discharge, and sore throat. Cardiovascular: Complaint of chest pain, and shortness of breath denies palpitations, dyspnea on exertion, orthopnea, or claudication. Respiratory: No cough, and wheezing. Gastrointestinal: Complains of nausea,Denies vomiting, dysphagia, odynophagia, heartburn, abdominal pain, flatulence, bloating, diarrhea, constipation, change in stool, or blood in stool. Genitourinary: No dysuria, hematuria, discharge, frequency, urgency, nocturia, incontinence, and urinary retention. Endocrine: No heat or cold intolerance, polydipsia, polyuria, and polyphagia. Neurological: No dizziness, extremity weakness and numbness, tremors, gait disturbance, seizures, and memory impairment. Psychiatric: Denies depression, anxiety,or insomnia. Musculoskeletal: Denies neck pain, stiffness and swelling, back pain, muscle weakness, joint pain, stiffness, swelling, or limited range of motion. Skin: No rashes, itching, skin lesion, changes in hair, nail, skin texture and breast. Hematologic/Lymphatic: Denies easy bruising, bleeding tendencies, or lymph node enlargement. Allergies: Coded Allergies: NO KNOWN ALLERGIES (Unverified , 05/22/25) Medications Current Medications Medications Dose Ordered Sig/Alexandra Route Start Time Stop Time Status Last Admin Dose Admin Acetaminophen 325 mg Q4HP PRN PO 07/19/25 22:30 Acetaminophen/ Hydrocodone Bitart 1 tab Q4HP PRN PO 07/19/25 22:30 Ondansetron HCl 4 mg Q4HP PRN IV 07/19/25 22:30 Nitroglycerin 0.4 mg Q5MINP PRN SL 07/19/25 22:30 Morphine Sulfate 2 mg Q30M PRN IV 07/19/25 22:30 Exam Vital Signs Vital Signs Date Time Temp Pulse Resp B/P (MAP) Pulse Ox O2 Delivery O2 Flow Rate FiO2 07/20/25 01:22 98 Room Air* 0 21 07/20/25 01:20 56 19 133/96 07/20/25 01:19 98.9 98.9 Exam General Appearance: Alert, Oriented X3, Cooperative, No acute distress HEENT: Atraumatic, PERRLA, EOMI, Mucous membrane moist/pink Respiratory: Clear to auscultation, Normal air movement Cardiovascular: Regular rate, Normal S1, Normal S2, No murmurs, no chest wall tenderness Abdominal: Normal bowel sounds, Soft, No tenderness, No hepatospenomegaly, No masses Extremities: No clubbing, No cyanosis, No edema, Normal pulses, No tenderness/swelling Skin: No rashes, No breakdown, No significant lesion Neuro: Normal gait, Normal speech, Strength at 5/5 X4 ext, Normal tone, Sensation intact, Cranial nerves 3-12 NL, Reflexes 2+ Psych/Mental Status: Mental status NL, Mood NL Labs/Xrays Labs Test 07/20/25 03:55 07/19/25 20:17 07/19/25 17:24 Range/Units White Blood Count 8.1 4.4-10.8 10^3/uL Red Blood Count 4.94 4.5-5.90 10^6/uL Hemoglobin 15.0 13.5-17.5 g/dL Hematocrit 42.6 41.0-53.0 % Mean Corpuscular Volume 86.1 80.0-100.0 fL Mean Corpuscular Hemoglobin 30.4 28.0-32.0 pg Mean Corpuscular Hemoglobin Concent 35.3 32.0-36.0 g/dL Red Cell Distribution Width 13.5 11.8-14.3 % Platelet Count 203 140-450 10^3/uL Mean Platelet Volume 9.4 6.9-10.8 fL Neutrophils (%) (Auto) 47.6 37.0-80.0 % Lymphocytes (%) (Auto) 40.9 10.0-50.0 % Monocytes (%) (Auto) 6.0 0.0-12.0 % Eosinophils (%) (Auto) 4.8 0.0-7.0 % Basophils (%) (Auto) 0.7 0.0-2.0 % Neutrophils # (Auto) 3.9 1.6-8.6 10 ^3/uL Lymphocytes # (Auto) 3.3 0.4-5.4 10 ^3/uL Monocytes # (Auto) 0.5 0-1.3 10 ^3/uL Eosinophils # (Auto) 0.4 0-0.8 10 ^3/uL Basophils # (Auto) 0.1 0-0.2 10 ^3/uL Nucleated Red Blood Cells 0.1 % Sodium Level 140 136-145 mmol/L Potassium Level 3.8 3.5-5.1 mmol/L Chloride Level 104 98-107 mmol/L Carbon Dioxide Level 27 20-31 mmol/L Anion Gap 9 5-15 Blood Urea Nitrogen 8 L 9-23 mg/dL Creatinine 0.83 0.700-1.30 mg/dL Glomerular Filtration Rate Calc 119 >90 mL/min BUN/Creatinine Ratio 9.6 L 10.0-20.0 Serum Glucose 93 74-106 mg/dL Calcium Level 9.3 8.7-10.4 mg/dL Total Bilirubin 0.3 0.2-1.0 mg/dL Aspartate Amino Transferase (AST) 17 13-40 U/L Alanine Aminotransferase (ALT) 27 7-40 U/L Alkaline Phosphatase 63 46-116 U/L C-Reactive Protein High Sensitivity 0.04 <1.0 mg/dL B-Type Natriuretic Peptide 11.28 0-100 pg/mL Total Protein 7.4 5.7-8.2 g/dL Albumin 4.9 H 3.2-4.8 g/dL Troponin I High Sensitivity 29 </=54 ng/L D-Dimer, Quantitative < 0.19 0.0-0.49 mg/L FEU SEPSIS Sepsis Screen Date sepsis recognized/suspect: Jul 20, 2025 Time Sepsis recognized/suspect: 012 Recent Procedure: No On Antibiotic Therapy: No Respiratory Rate >20: No Heart Rate >90: No Temp<36 C (96.8 F) or >38.3 C: No SBP <90 or MAP <65 mmHG: No New Acute Mental Status Change: No Is the patient on CPAP, BIPAP,: No Physician Orders Admit (07/19/25 22:29) Allergies (07/19/25 22:29) Code Status (07/19/25 22:29) Acetaminophen Tablet (Tylenol Tablet) (07/19/25 22:30) Hydrocodone-Acet 5/325mg Tab ([place] /32 (07/19/25 22:30) Ondansetron Hcl (Zofran) (07/19/25 22:30) Condition: Fair (07/19/25 22:29) Nitroglycerin Sublingual (Ntrostat Subli (07/19/25 22:30) Morphine Sulfate Injection (07/19/25 22:30) Stat Ekg For Chest Pain (07/19/25 22:29) Legal Summer Intern For 24 Hours (07/19/25 22:29) Regular Diet (07/20/25 Breakfast) Erythrocyte Sedimentation Rate (07/20/25 01:52) Echo 2d Mode Cardiac Dop (07/20/25 01:56) Mrsa Screen (07/20/25 02:01) Vital Signs Date Time Temp Pulse Resp B/P (MAP) Pulse Ox O2 Delivery O2 Flow Rate FiO2 07/20/25 01:22 98 Room Air* 0 21 07/20/25 01:20 56 19 133/96 07/20/25 01:19 98.9 56 19 133/96 (108) 96 98.9 07/19/25 22:47 64 16 130/92 Laboratory Tests Test 07/20/25 03:55 White Blood Count 8.1 10^3/uL (4.4-10.8) Assessment/Plan Assessment/Plan #Acute chest pain to rule out acute coronary syndrome -EKG and troponins normal -repeat EKG follow up -admitted to telemetry -Troponin x3 negative -Echo done on 05/25/25- EF of 60% -Pain management:chest pain protocol #Ruled out DVT-D -dimer normal, no signs or symptoms of DVT #Ruled out pneumothorax -normal chest x-ray #To rule out pericarditis, myocarditis -follow up ESR, CRP #To rule out aortic dissection -follow up differential blood pressure #History of polysubstance abuse -to follow urine drug screen, blood alcohol levels #History of Dyslipidemia -Lifestyle modification PUD prophylaxis: not needed DVT prophylaxis: brisk movement. Barriers to discharge: Medical diagnosis and managment in progress. Patient lives with self. Independent for ADL. Case discussed with Dr. Castro. Code Status: Full Code. Complex patient care discussion needed. Spend total 35 minutes for bedside assessment, case discussion and management. Plan discussed with: Patient My Orders Orders - CONNIE SORENSON RESIDENT Procedure Category Date Status Time Admit ADMIT 07/19/25 Transmitted 22:29 Allergies JANE 07/19/25 In Process 22:29 Code Status CODE 07/19/25 Transmitted 22:29 Acetaminophen Tablet PHA 07/19/25 In Process (Tylenol Tablet) 22:30 Hydrocodone-Acet PHA 07/19/25 In Process 5/325mg Tab ([place] 22:30 Ondansetron Hcl PHA 07/19/25 In Process (Zofran) 22:30 Condition: Fair JANE 07/19/25 In Process 22:29 Nitroglycerin PHA 07/19/25 In Process Sublingual (Ntrostat 22:30 Morphine Sulfate PHA 07/19/25 In Process Injection 22:30 Stat Ekg For Chest JANE 07/19/25 In Process Pain 22:29 Legal Summer Intern For AJNE 07/19/25 In Process 24 Hours 22:29 Regular Diet DIET 07/20/25 Transmitted Breakfast Erythrocyte LAB 07/20/25 In Process Sedimentation Rate 01:52 Echo 2d Mode Cardiac US 07/20/25 Logged DOP 01:56 Mrsa Screen CHYNA 07/20/25 Uncollected 02:01 Date of Service: Jul 19, 2025 Billing Provider: ALEJANDRA CASTRO MD Common Visit Codes: 81270-IUQOFSQ INP/OBS CARE (HIGH) Secondary Visit Codes: 83423-[id number] CARE PLAN 30 MINUTES CONNIE SORENSON RESIDENT Jul 20, 2025 06:34
[2025-07-20] MEDS: MAALOX PLUS or MAALOX 30 ML PO ONE (06:59)
[2025-07-20] MEDS: PANTOPRAZOLE 40 MG/10 ML VIAL INJ IV SCH (06:59)
--- NOTE | 2025-07-20 11:02 | DVHPNRES ---
Progress Note Date Seen: Jul 20, 2025 Resident Creating Document: VINICIO DAVIS RESIDENT Medical Necessity Reason Pt with a Central, PICC or Fol: No Subjective Review of Systems This is a 34-year-old male with a past medical history of dyslipidemia and recurrent chest pains who presented to the ER with the chief complaint of chest pain since 2 days. Patient states that he was resting when the pain started. The pain is in the left side of the chest, radiating to the neck and to the left arm, comes in and increased on walking the stairs and relieved with rest. Patient mentions when he started having the chest pain, he could not breathe and he was trembling. She also had nausea and palpitations with the pain. The patient mentions that the pain was a 7/10 in intensity when it 1st started and is a 2 /10 in intensity at present. The patient mentions that he has been to the hospital 4 times all before this encounter for the same complaint and was told that he has dyslipidemia and could have a blocked artery. He was put on aspirin for some time but it was discontinued. He is also due for a stress test in the outpatient. Past medical history: Dyslipidemia Past surgical history: Denies Social & Personal history: Lives with aunt Alcohol: Denies alcohol use, Smoking:he used to smoke 3-4 cigarettes per day but discontinued 2 months ago Drugs: History of methamphetamine and cocaine use, discontinued 40 years ago Allergies: No known allergies Patient seen and examined at bedside. Patient is alert and oriented to time, place person and responding to all questions. Eyes: No Pain, No Vision change, No Conjunctivae inflammation, No Eyelid inflammation, No Redness ENT: No Ear pain, No Ear discharge, No Nose pain, No Nose discharge, No Nose congestion, No Mouth pain, No Mouth swelling, No Throat pain, No Throat swelling Cardiovascular: mild Chest Pain, No Palpitations, No Orthopnea, No Paroxysmal No Dyspnea, No Edema, No Lt Headedness Respiratory: No Cough, No Dry, Shortness of breath, No SOB with exertion, No Wheezing, No Hemoptysis, No Pleuritic Pain, No Sputum Gastrointestinal: No Nausea, No Vomiting, No Abdominal Pain, No Diarrhea, No Constipation, No Melena, No Hematochezia Genitourinary: No Dysuria, No Frequency, No Incontinence, No Hematuria, No Retention Objective vital signs Vital Sign Date Time Temp Pulse Resp B/P (MAP) Pulse Ox O2 Delivery O2 Flow Rate FiO2 07/20/25 08:50 97.9 54 18 121/82 (95) 97 97.9 07/20/25 01:39 Room Air* 0 21 Total Intake and Output 07/19/25 07/19/25 07/20/25 15:00 23:00 07:00 Intake Total 236 ml Balance 236 ml medications Current Medications Medications Dose Ordered Sig/Alexandra Route Start Time Stop Time Status Last Admin Dose Admin Acetaminophen 325 mg Q4HP PRN PO 07/19/25 22:30 Acetaminophen/ Hydrocodone Bitart 1 tab Q4HP PRN PO 07/19/25 22:30 Ondansetron HCl 4 mg Q4HP PRN IV 07/19/25 22:30 Nitroglycerin 0.4 mg Q5MINP PRN SL 07/19/25 22:30 Morphine Sulfate 2 mg Q30M PRN IV 07/19/25 22:30 Pantoprazole Sodium 40 mg DAILY IV 07/20/25 06:45 07/20/25 06:59 40 MG Examination General Appearance: Cooperative. Well developed. Well nourished. NAD Head Exam: Normal inspection Neck Exam: Normal inspection,Non-tender,Normal alignment Pulmonary/Respiratory: Chest non-tender, Clear bilateral breath sounds, no crackles, no wheezing. Cardiovascular/Chest: Regular rate and rhythm, No murmurs, No JVD, normal S1 and S2, chest wall tenderness on left side with tenderness in left arm Peripheral Pulses: 2+ Radial (R). 2+ Radial (L). 2+ Pedal (R). 2+ Pedal (L) Abdominal Exam: Normal bowel sounds,Soft, normal abdomen, no visible veins, Nontender, No hepatospenomegaly, No masses Ankle Exam: Negative ankle edema Lower extremities: Negative lower extremity edema Neuro/Mental Status: A&O x4. Coherent. Thoughts/Psych: Normal thought pattern, Appropriate mood and affect,Good judgement and insight Skin Exam: Normal inspection, Normal color,Warm,Dry laboratory and microbiology Laboratory Tests 07/20/25 03:55 Test 07/20/25 03:55 Range/Units Serum Glucose 93 74-106 mg/dL Labs and/or images reviewed: Labs reviewed by me, Image(s) reviewed by me Problem List/Assessment/Plan Problem List/Assessment/Plan Chest pain, rule out ACS Atypical chest pain -ekg- nonspecific st and T wave changes -Tropes x3 negative -Echo done on 05/25/25- EF of 60% -Pain management-chest pain protocol -cardiology consulted Musculoskeletal chest pain/costochondritis -ibuprofen and hot packs Dyslipidemia -Lifestyle modification History of polysubstance abuse -urine drug screen, blood alcohol levels PUD prophylaxis: Protonix 40 mg IV daily DVT prophylaxis: Not indicated Goals of care: Full code, discussed for >20 minutes Plan discussed with patient Plan discussed with Dr Mccall Plan discussed with: Patient VINICIO DAVIS RESIDENT Jul 20, 2025 11:02
--- NOTE | 2025-07-20 13:29 | ECG ---
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
[2025-07-20] MEDS ORDERED: IBUPROFEN 600 MG TAB PO PRN (14:15)
--- NOTE | 2025-07-20 16:23 | DVHINCON2 ---
Date Seen: Jul 20, 2025 Referring Physician MD Vj Reason for Consultation Chest pain History of Present Illness This is a pleasant [place]guill[place]-speaking mostly 34-year-old male who presented to the emergency room with a chief complaint of chest pain for two days. Describes his chest pain as left-sided, pressure/sharp in nature, radiating to the left axillary area, and unprovoked prompting him to seek further medical attention. He underwent a 12-lead electrocardiogram revealing a sinus rhythm with early repolarization changes to lateral leads. Serial troponin levels are negative. The patient also endorses a history of "tachycardia," nausea, an vomiting with exercise including swimming and walking on a treadmill. He admits to the intake of energetic drinks and pre-workout prior to exercising. States he was an initial appointment with Dr. Benjamin on for further evaluation as the patient has presented 6 times since for similar chest pain complains. Only medical history reported includes dyslipidemia and history of tobacco use quitting two months ago including 3 pack years. Past Medical History Past medical history reviewed. No other significant than mentioned above. Past Surgical History Past medical history reviewed. No other significant than mentioned above. Family History: Hypertension G8 MOTHER Family History Family history reviewed. Mother with hypertension. Social History Denies the use of illicit drugs or alcohol. Quit tobacco use approximately two months ago including three pack-years. Allergies: Coded Allergies: NO KNOWN ALLERGIES (Unverified , 05/22/25) Home Meds Active Scripts Atorvastatin Calcium (Lipitor) 40 Mg Tab, 1 TAB PO QPM, #90 TAB 1 Refill Prov:GERMAIN CASEY MD 05/26/25 Home Meds Home medications reviewed. Current Medications Current Medications Medications (Trade) Dose Ordered Sig/Alexandra Route PRN Reason Start Time Stop Time Status Last Admin Acetaminophen (Tylenol Tablet) 325 mg Q4HP PRN PO MILD PAIN (1-3 PAIN SCALE) 07/19/25 22:30 Acetaminophen/ Hydrocodone Bitart (Avant 5/325MG Tab) 1 tab Q4HP PRN PO MODERATE PAIN (4-6 PAIN SCALE) 07/19/25 22:30 Ondansetron HCl (Zofran) 4 mg Q4HP PRN IV NAUSEA / VOMITING 07/19/25 22:30 Nitroglycerin (Ntrostat Sublingual) 0.4 mg Q5MINP PRN SL FOR CHEST PAIN 07/19/25 22:30 Morphine Sulfate 2 mg Q30M PRN IV FOR CHEST PAIN 07/19/25 22:30 Pantoprazole Sodium (Protonix) 40 mg DAILY IV 07/20/25 06:45 07/20/25 06:59 Ibuprofen (Motrin Tablet) 600 mg Q6HP PRN PO MODERATE PAIN (4-6 PAIN SCALE) 07/20/25 14:15 Review of Systems Constitutional: No symptom reported Ears, Nose, & Throat: No symptom reported Eyes: No symptom reported Neurological: No symptoms reported Pulmonary/Respiratory: No symptom reported Cardiovascular: Chest pain Gastrointestinal: No symptom reported Genitourinary: No symptom reported Musculoskeletal: No symptom reported Skin: No symptom reported Psychiatric: No symptom reported Endocrine: No symptom reported Hemotologic/Lymphatic: No symptom reported Vital Signs Vital Signs Date Time Temp Pulse Resp B/P (MAP) Pulse Ox O2 Delivery O2 Flow Rate FiO2 07/20/25 13:00 97.9 58 18 121/74 (90) 98 97.9 07/20/25 11:32 Room Air* 0 21 Physical Exam General Appearance: Cooperative. Well developed. Well nourished. In no acute distress Head Exam: Normal inspection Neck Exam: Normal inspection. Non-tender. Normal alignment Pulmonary/Respiratory: Chest non-tender. Clear bilateral breath sounds Cardiovascular/Chest: Regular rate and rhythm. S1, S2. Sinus rhythm with early repolarization changes. No murmurs. No JVD. Peripheral Pulses: 2+ Radial (R). 2+ Radial (L). 2+ Pedal (R). 2+ Pedal (L) Abdominal Exam: Normal bowel sounds. Soft. Nontender. No hepatospenomegaly. No masses Ankle Exam: Negative ankle edema Lower extremities: Negative lower extremity edema Neuro/Mental Status: A&O x4. Coherent Thoughts/Psych: Normal thought pattern. Appropriate mood and affect. +Anxiety Appearance: In no acute distress Skin Exam: Normal inspection. Normal color. Warm. Dry Labs/Diagnostic Data Labs Test 07/20/25 03:55 07/19/25 20:17 07/19/25 17:24 Range/Units White Blood Count 8.1 4.4-10.8 10^3/uL Red Blood Count 4.94 4.5-5.90 10^6/uL Hemoglobin 15.0 13.5-17.5 g/dL Hematocrit 42.6 41.0-53.0 % Mean Corpuscular Volume 86.1 80.0-100.0 fL Mean Corpuscular Hemoglobin 30.4 28.0-32.0 pg Mean Corpuscular Hemoglobin Concent 35.3 32.0-36.0 g/dL Red Cell Distribution Width 13.5 11.8-14.3 % Platelet Count 203 140-450 10^3/uL Mean Platelet Volume 9.4 6.9-10.8 fL Neutrophils (%) (Auto) 47.6 37.0-80.0 % Lymphocytes (%) (Auto) 40.9 10.0-50.0 % Monocytes (%) (Auto) 6.0 0.0-12.0 % Eosinophils (%) (Auto) 4.8 0.0-7.0 % Basophils (%) (Auto) 0.7 0.0-2.0 % Neutrophils # (Auto) 3.9 1.6-8.6 10 ^3/uL Lymphocytes # (Auto) 3.3 0.4-5.4 10 ^3/uL Monocytes # (Auto) 0.5 0-1.3 10 ^3/uL Eosinophils # (Auto) 0.4 0-0.8 10 ^3/uL Basophils # (Auto) 0.1 0-0.2 10 ^3/uL Nucleated Red Blood Cells 0.1 % Erythrocyte Sedimentation Rate 3 0-20 mm/hr Sodium Level 140 136-145 mmol/L Potassium Level 3.8 3.5-5.1 mmol/L Chloride Level 104 98-107 mmol/L Carbon Dioxide Level 27 20-31 mmol/L Anion Gap 9 5-15 Blood Urea Nitrogen 8 L 9-23 mg/dL Creatinine 0.83 0.700-1.30 mg/dL Glomerular Filtration Rate Calc 119 >90 mL/min BUN/Creatinine Ratio 9.6 L 10.0-20.0 Serum Glucose 93 74-106 mg/dL Calcium Level 9.3 8.7-10.4 mg/dL Total Bilirubin 0.3 0.2-1.0 mg/dL Aspartate Amino Transferase (AST) 17 13-40 U/L Alanine Aminotransferase (ALT) 27 7-40 U/L Alkaline Phosphatase 63 46-116 U/L C-Reactive Protein High Sensitivity 0.04 <1.0 mg/dL B-Type Natriuretic Peptide 11.28 0-100 pg/mL Total Protein 7.4 5.7-8.2 g/dL Albumin 4.9 H 3.2-4.8 g/dL Thyroid Stimulating Hormone (TSH) 2.35 0.55-4.78 uIU/mL Plasma/Serum Blood Alcohol < 3.0 <10 mg/dL Troponin I High Sensitivity 29 </=54 ng/L D-Dimer, Quantitative < 0.19 0.0-0.49 mg/L FEU Microbiology Date/Time Source Procedure Growth Status 07/20/25 04:20 Nose MRSA Screen - Final Complete Assessment Noncardiac chest pain, likely anxiety Palpitations rule out tachyarrhythmias Dyslipidemia Recent hx of tobacco use Borderline obesity Plan/Recommendation (Dr. Benjamin) The patient presents with noncardiac chest pain, a 12-lead electrocardiogram revealing early repolarization changes, negative serial troponin levels, and a heart score of three placing him at a low risk for major cardiac events. A recent transthoracic echocardiogram revealed LVEF of 60% with normal RV function. Given six different visits to this facility for chest pain complains, we will complete a treadmill stress test to rule out coronary artery disease. He also complains of palpitations, N/V, during exercise routine admitting to the use pre-workout agents and energetic drinks. He was strongly counseled to refrain from energy drinks or highly caffeinated beverages as these could trigger cardiac arrhythmias. Also counseled on diet and exercise given dyslipidemia. Further orders per clinical course. Thank you for allowing us to participate in this patient's care. Please call if you have any questions or concerns. This medical document was created using an electronic medical record system with voice recognition software and computerized dictation system. Although this document has been carefully reviewed, there might still be some phonetic and typographical errors. Occasional wrong-word or ``sound-alike substitutions may have occurred due to the inherent limitations of voice recognition software. These areas are purely typographical due to imperfections of the software programs and do not reflect any compromise in the patient's medical care. Please read the chart carefully and recognize, using context, where these substitutions have occurred. Plan discussed with: Patient, Other NYHA Physical activity limitations: NA Date of Service: Jul 20, 2025 Billing Provider: ROSHAN TOMLIN [employer] Cardiology Common Codes: 75413-HXTFSYV INP/OBS CARE (High) ROSHAN TOMLIN [facility] Jul 20, 2025 16:23
[2025-07-20] MEDS: HYDROcodone-ACET 5/325MG TAB PO PRN (20:22)
[2025-07-21] VITALS (8 sets, daily range): BP systolic 108–123; BP diastolic 64–88; PULSE 54–68; RESP 17–20; TEMP 96.8–98.2; O2SAT 96–99
[2025-07-21 06:16] LABS: COVID19 ANTIGEN SOFIA FIA NEGATIVE (NEGATIVE)
[2025-07-21 06:18] LABS: Hematocrit 43.8 % (41.0-53.0); Hemoglobin 15.4 g/dL (13.5-17.5); Mean Corpuscular Hemoglobin 30.5 pg (28.0-32.0); Mean Corpuscular Volume 86.7 fL (80.0-100.0); Nucleated Red Blood Cells % 0.0 %
[2025-07-21 06:26] LABS: Chloride 105 mmol/L (98-107); Potassium 4.3 mmol/L (3.5-5.1); Sodium 140 mmol/L (136-145)
[2025-07-21 06:27] LABS: Anion Gap 11 (5-15); Calcium 9.2 mg/dL (8.7-10.4); Carbon Dioxide 24 mmol/L (20-31)
[2025-07-21 06:32] LABS: BUN/Creatinine Ratio 12.9 (10.0-20.0); Blood Urea Nitrogen 12 mg/dL (9-23); Glucose 95 mg/dL (74-106)
--- NOTE | 2025-07-21 10:07 | DVHCARD ---
Cardiology Stress Test [place] Treadmill Stress Test [place] Referring MD: ROXANNE Tomlin Protocol: Luis Manuel (with cardiolite) Reason for referral: Chest Pain Target heart Rate:@85%: 159 Percent MPHR: 188 METS: 10.10 Resting Heart rate: 65 Resting Blood Pressure: 138/98 Exercise Heart Rate: 144 Exercise Blood Pressure: 194/76 Reason for Termination of Test: Completion of Protocol Baseline EKG: NSR Stress EKG: Sinus tachycardia w/o ST-T wave changes Functional Capacity: Good Normal Heart Rate Response: Adequate Blood Pressure Response: Hypertensive Clinical response: Non-ischemic Arrhythmia?: No Cardiolite Injected?: Yes ST-T Changes: Non/Minimal Probability of Inducible Ische: Perfusion result pending Comments: Uneventful Luis Manuel protocol. Tracer images pending Date of Service: Jul 21, 2025 Billing Provider: ROSHAN TOMLIN Cardiology Common Codes: PROCEDURE ONLY Treadmill W/Cardiolite Nuclear: [id number], INTERP, RPT ROSHAN TOMLIN Jul 21, 2025 10:07
--- NOTE | 2025-07-21 10:33 | ECG ---
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
[2025-07-21 16:37] LABS: Urine Protein, UAD Negative (Negative)
[2025-07-21 16:52] LABS: Amphetamine Screen, Urine Neg (NEGATIVE); Barbiturate Scree,Urine Neg (NEGATIVE); Benzodiazephine Screen, Urine Neg (NEGATIVE); Cocaine Screen, Urine Neg (NEGATIVE); Opiate Scree,Urine Neg (NEGATIVE); Phencyclidine Screen, Urine Neg (NEGATIVE)
[2025-07-21 16:53] LABS: Cannabinoid Screen, Urine Neg (NEGATIVE)
--- NOTE | 2025-07-21 18:42 | DVHPNRES ---
Progress Note Date Seen: Jul 21, 2025 Resident Creating Document: VINICIO DAVIS RESIDENT Medical Necessity Reason Pt with a Central, PICC or Fol: No Subjective Review of Systems This is a 34-year-old male with a past medical history of dyslipidemia and recurrent chest pains who presented to the ER with the chief complaint of chest pain since 2 days. Patient states that he was resting when the pain started. The pain is in the left side of the chest, radiating to the neck and to the left arm, comes in and increased on walking the stairs and relieved with rest. Patient mentions when he started having the chest pain, he could not breathe and he was trembling. She also had nausea and palpitations with the pain. The patient mentions that the pain was a 7/10 in intensity when it 1st started and is a 2 /10 in intensity at present. The patient mentions that he has been to the hospital 4 times all before this encounter for the same complaint and was told that he has dyslipidemia and could have a blocked artery. He was put on aspirin for some time but it was discontinued. He is also due for a stress test in the outpatient. Past medical history: Dyslipidemia Past surgical history: Denies Social & Personal history: Lives with aunt Alcohol: Denies alcohol use, Smoking:he used to smoke 3-4 cigarettes per day but discontinued 2 months ago Drugs: History of methamphetamine and cocaine use, discontinued 40 years ago Allergies: No known allergies Patient seen and examined at bedside. Patient is alert and oriented to time, place person and responding to all questions. Eyes: No Pain, No Vision change, No Conjunctivae inflammation, No Eyelid inflammation, No Redness ENT: No Ear pain, No Ear discharge, No Nose pain, No Nose discharge, No Nose congestion, No Mouth pain, No Mouth swelling, No Throat pain, No Throat swelling Cardiovascular: mild Chest Pain, No Palpitations, No Orthopnea, No Paroxysmal No Dyspnea, No Edema, No Lt Headedness Respiratory: No Cough, No Dry, Shortness of breath, No SOB with exertion, No Wheezing, No Hemoptysis, No Pleuritic Pain, No Sputum Gastrointestinal: No Nausea, No Vomiting, No Abdominal Pain, No Diarrhea, No Constipation, No Melena, No Hematochezia Genitourinary: No Dysuria, No Frequency, No Incontinence, No Hematuria, No Retention 9/2- patient was seen at bedside today. The patient mentioned he has very mild pain in the left side of his chest. Cardiology was consulted and a Cardiolite stress test was done for him today, results of which are pending. The patient was also started on muscle relaxants, as his pain was likely musculoskeletal. Probability of possible discharge tomorrow was discussed with the patient. His vitals have remained stable labs are within range. Objective vital signs Vital Sign Date Time Temp Pulse Resp B/P (MAP) Pulse Ox O2 Delivery O2 Flow Rate FiO2 07/21/25 17:00 97.7 61 18 114/74 (87) 96 97.7 07/21/25 08:00 Room Air* 0 21 Total Intake and Output 07/20/25 07/20/25 07/21/25 15:00 23:00 07:00 Intake Total 200 ml Output Total 800 ml 1 ml Balance -800 ml 199 ml medications Current Medications Medications Dose Ordered Sig/Alexandra Route Start Time Stop Time Status Last Admin Dose Admin Acetaminophen 325 mg Q4HP PRN PO 07/19/25 22:30 Acetaminophen/ Hydrocodone Bitart 1 tab Q4HP PRN PO 07/19/25 22:30 07/21/25 14:44 1 TAB Ondansetron HCl 4 mg Q4HP PRN IV 07/19/25 22:30 Nitroglycerin 0.4 mg Q5MINP PRN SL 07/19/25 22:30 Morphine Sulfate 2 mg Q30M PRN IV 07/19/25 22:30 Pantoprazole Sodium 40 mg DAILY IV 07/20/25 06:45 07/21/25 10:39 40 MG Ibuprofen 600 mg Q6HP PRN PO 07/20/25 14:15 Examination General Appearance: Cooperative. Well developed. Well nourished. NAD Head Exam: Normal inspection Neck Exam: Normal inspection,Non-tender,Normal alignment Pulmonary/Respiratory: Chest non-tender, Clear bilateral breath sounds, no crackles, no wheezing. Cardiovascular/Chest: Regular rate and rhythm, No murmurs, No JVD, normal S1 and S2, chest wall tenderness on left side with tenderness in left arm Peripheral Pulses: 2+ Radial (R). 2+ Radial (L). 2+ Pedal (R). 2+ Pedal (L) Abdominal Exam: Normal bowel sounds,Soft, normal abdomen, no visible veins, Nontender, No hepatospenomegaly, No masses Ankle Exam: Negative ankle edema Lower extremities: Negative lower extremity edema Neuro/Mental Status: A&O x4. Coherent. Thoughts/Psych: Normal thought pattern, Appropriate mood and affect,Good judgement and insight Skin Exam: Normal inspection, Normal color,Warm,Dry laboratory and microbiology Laboratory Tests 07/21/25 05:35 Test 07/21/25 05:35 Range/Units Serum Glucose 95 74-106 mg/dL Microbiology Date/Time Source Procedure Growth Status 07/20/25 04:20 Nose MRSA Screen - Final Complete Labs and/or images reviewed: Labs reviewed by me, Image(s) reviewed by me Problem List/Assessment/Plan Problem List/Assessment/Plan Chest pain, rule out ACS Atypical chest pain -ekg- nonspecific st and T wave changes -Tropes x3 negative -Echo done on 05/25/25- EF of 60% -Pain management-chest pain protocol -cardiology consulted Musculoskeletal chest pain/costochondritis -ibuprofen and hot packs Dyslipidemia -Lifestyle modification History of polysubstance abuse -urine drug screen, blood alcohol levels PUD prophylaxis: Protonix 40 mg IV daily DVT prophylaxis: Not indicated Goals of care: Full code, discussed for >20 minutes Plan discussed with patient Plan discussed with Dr Mccall Plan discussed with: Patient VINICIO DAVIS RESIDENT Jul 21, 2025 18:42 NIK DURHAM RESIDENT Jul 21, 2025 19:54
[2025-07-21] MEDS ORDERED: BACLOFEN 10 MG TAB PO ONE (18:45)
[2025-07-21] MEDS: BACLOFEN 10 MG TAB PO SCH (22:32)
[2025-07-22 01:00] VITALS: BP 126/89; PULSE 66; RESP 18; TEMP 97.9; O2SAT 95
[2025-07-22 05:00] VITALS: BP 124/87; PULSE 52; RESP 18; TEMP 98; O2SAT 99
[2025-07-22 06:30] LABS: Anion Gap 11 (5-15); Calcium 9.2 mg/dL (8.7-10.4); Carbon Dioxide 25 mmol/L (20-31); Chloride 104 mmol/L (98-107); Potassium 4.0 mmol/L (3.5-5.1); Sodium 140 mmol/L (136-145)
[2025-07-22 06:36] LABS: BUN/Creatinine Ratio 14.8 (10.0-20.0); Blood Urea Nitrogen 13 mg/dL (9-23); Glucose 92 mg/dL (74-106)
[2025-07-22 06:52] LABS: Hematocrit 42.2 % (41.0-53.0); Hemoglobin 15.2 g/dL (13.5-17.5); Mean Corpuscular Hemoglobin 30.7 pg (28.0-32.0); Mean Corpuscular Volume 85.3 fL (80.0-100.0); Nucleated Red Blood Cells % 0.2 %
--- NOTE | 2025-07-22 07:41 | DVHSR ---
APPROVED REPORT Exam: Nuclear Stress Test Indication: Chest pain BMI: 0 Medical History Medical History: Denied Allergies: No known drug allergies Stress Test Details Stress Test: Exercise stress testing was performed using a Luis Manuel protocol. HR Resting HR: 65 bpmMax Heart Rate (APMHR): 188.129343 bpm Max HR Achieved: 144 bpmTarget HR (85% APMHR): 159.979248 bpm % of APMHR: 76.60 Recovery HR: 90 bpm BP Resting BP: 138/98 mmHg Recovery BP: 158/89 mmHg ECG Resting ECG: Sinus Rhythm Clinical Reason for Termination: Completed protocol Exercise duration: 9 min sec Nurse Comments Recieved ambulatory, A/Ox4 on RA, connected to residential monitor, VS stable. PIV S/L flushes well, revi ewed POC, pt verbalized understanding. Leo JELLY FILTER TENDER here to monitor exam. Treadmill test performed per protocol. Pt stable, tolerated well, VS returned to baseline. Pt to follow up with watch dial stoner for results. Stress ECG Conclusion [id number]% minor inferior wall artifact noted clinical correlate no major ischemia noted NM EXAM: Myocardial Perfusion REST/STRESS Imaging Protocol: Rest Tc-99m/Stress Tc-99m 1 day Resting Data Rest SPECT myocardial perfusion imaging was performed in supine position 60 minutes following the int ravenous injection of 9.8 mCi of Tc-99m Sestamibi. Time of rest injection: 07:50 Date: 07/21/2025 Time of rest imagin:50 Date: 07/21/2025 Administration Route: IV Administration Site: Right Arm Exercise Stress At peak stress, the patient was injected intravenously with 33.0mCi of Tc-99m Sestamibi. Time of stress injection: 09:49 Date: 07/21/2025 Time of stress imagin:04 Date: 07/21/2025 Administration Route: IV Administration Site: Right Arm Gated Stress SPECT was performed 15 minutes after stress injection. The images were gated to evaluate regional wall motion and calculate left ventricular ejection fracti on. Stress only was performed in the Supine position. Nuclear Conclusion Nuclear Findings: negative for ischemia lvef61% minor inferior wall artifact noted clinical correlate no major ischemia noted
[2025-07-22 08:00] VITALS: PULSE 53; PULSE 58; RESP 20; O2SAT 98
[2025-07-22 09:00] VITALS: BP 119/58; PULSE 58; RESP 20; TEMP 97.8; O2SAT 98
--- NOTE | 2025-07-22 11:15 | DVHPN2 ---
Consult Progress Note Date Seen: Jul 22, 2025 Subjective Review of Systems: CVS:Normal, RESPIRATORY:Normal, NEURO:Normal Objective vital signs Vital Sign Date Time Temp Pulse Resp B/P (MAP) Pulse Ox O2 Delivery O2 Flow Rate FiO2 07/22/25 09:00 97.8 58 20 119/58 (78) 98 97.8 07/22/25 08:00 Room Air* 0 21 Total Intake and Output 07/21/25 07/21/25 07/22/25 15:00 23:00 07:00 Intake Total 730 ml 600 ml Balance 730 ml 600 ml medications Current Medications Medications Dose Ordered Sig/Alexandra Route Start Time Stop Time Status Last Admin Dose Admin Acetaminophen 325 mg Q4HP PRN PO 07/19/25 22:30 Acetaminophen/ Hydrocodone Bitart 1 tab Q4HP PRN PO 07/19/25 22:30 07/21/25 14:44 1 TAB Ondansetron HCl 4 mg Q4HP PRN IV 07/19/25 22:30 Nitroglycerin 0.4 mg Q5MINP PRN SL 07/19/25 22:30 Morphine Sulfate 2 mg Q30M PRN IV 07/19/25 22:30 Pantoprazole Sodium 40 mg DAILY IV 07/20/25 06:45 07/22/25 10:05 40 MG Ibuprofen 600 mg Q6HP PRN PO 07/20/25 14:15 Baclofen 10 mg BID PO 07/21/25 22:00 07/22/25 10:05 10 MG Examination: LUNGS:Normal, CVS:Normal, NEURO:Normal laboratory and microbiology Laboratory Tests 07/22/25 05:37 Test 07/22/25 05:37 Range/Units Serum Glucose 92 74-106 mg/dL Problem List/Assessment/Plan Problem List/Assessment/Plan Noncardiac chest pain, likely anxiety vs musculoskeletal Palpitations rule out tachyarrhythmias Dyslipidemia Recent hx of tobacco use Recent hx of caffeinated/pre-workout beverages Borderline obesity Plan/Recommendation (Dr. Benjamin) The patient presents with noncardiac chest pain, a 12-lead electrocardiogram revealing early repolarization changes, negative serial troponin levels, and a heart score of three placing him at a low risk for major cardiac events. A recent transthoracic echocardiogram revealed LVEF of 60% with normal RV function. Given six different visits to this facility for chest pain complains, he underwent a Cardiolite treadmill stress test deemed to be negative for ischemia. Other complains included palpitations, N/V, during exercise routine admitting to the use pre-workout agents and energetic drinks. He was strongly counseled to refrain from energy drinks or highly caffeinated beverages as these could trigger cardiac arrhythmias, and counseled on diet and exercise given dyslipidemia. 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 There is no further cardiac work-up indicated at this time. Kindly call with any questions. Signing off. Thank you for allowing us to participate in this patient's care. This medical document was created using an electronic medical record system with voice recognition software and computerized dictation system. Although this document has been carefully reviewed, there might still be some phonetic and typographical errors. Occasional wrong-word or ``sound-alike substitutions may have occurred due to the inherent limitations of voice recognition software. These areas are purely typographical due to imperfections of the software programs and do not reflect any compromise in the patient's medical care. Please read the chart carefully and recognize, using context, where these substitutions have occurred. Plan discussed with: Patient, Other Date of Service: Jul 22, 2025 Billing Provider: ROSHAN TOMLIN Cardiology Common Codes: 74504-[id number] INP/OBS CARE(Mod) ROSHAN TOMLIN Jul 22, 2025 11:15
[2025-07-22] MEDS ORDERED: IBU600T PO (11:44)
[2025-07-22] MEDS ORDERED: CYCL-611 PO (11:44)
[2025-07-22 12:10] VITALS: BP 119/58; PULSE 58; RESP 20; TEMP 97.8; O2SAT 98
[2025-07-22 13:00] VITALS: BP 120/81; PULSE 64; RESP 20; TEMP 98.4; O2SAT 97
--- NOTE | 2025-07-22 16:43 | DVHDSRES ---
Discharge Summary Date of Admission Resident Creating Document: VINICIO DAVIS RESIDENT Jul 19, 2025 at 22:29 Date of Discharge: Jul 22, 2025 Admitting Diagnosis acute Chest pain Labs/Diagnostic Data: Laboratory Results Test 07/22/25 05:37 07/21/25 16:00 07/20/25 05:26 07/20/25 03:55 White Blood Count 8.0 10^3/uL (4.4-10.8) Red Blood Count 4.94 10^6/uL (4.5-5.90) Hemoglobin 15.2 g/dL (13.5-17.5) Hematocrit 42.2 % (41.0-53.0) Mean Corpuscular Volume 85.3 fL (80.0-100.0) Mean Corpuscular Hemoglobin 30.7 pg (28.0-32.0) Mean Corpuscular Hemoglobin Concent 36.0 g/dL (32.0-36.0) Red Cell Distribution Width 13.4 % (11.8-14.3) Platelet Count 194 10^3/uL (140-450) Mean Platelet Volume 9.4 fL (6.9-10.8) Neutrophils (%) (Auto) 46.2 % (37.0-80.0) Lymphocytes (%) (Auto) 42.6 % (10.0-50.0) Monocytes (%) (Auto) 6.1 % (0.0-12.0) Eosinophils (%) (Auto) 4.5 % (0.0-7.0) Basophils (%) (Auto) 0.6 % (0.0-2.0) Neutrophils # (Auto) 3.7 10 ^3/uL (1.6-8.6) Lymphocytes # (Auto) 3.4 10 ^3/uL (0.4-5.4) Monocytes # (Auto) 0.5 10 ^3/uL (0-1.3) Eosinophils # (Auto) 0.4 10 ^3/uL (0-0.8) Basophils # (Auto) 0.1 10 ^3/uL (0-0.2) Nucleated Red Blood Cells 0.2 % Sodium Level 140 mmol/L (136-145) Potassium Level 4.0 mmol/L (3.5-5.1) Chloride Level 104 mmol/L (98-107) Carbon Dioxide Level 25 mmol/L (20-31) Anion Gap 11 (5-15) Blood Urea Nitrogen 13 mg/dL (9-23) Creatinine 0.88 mg/dL (0.700-1.30) Glomerular Filtration Rate Calc 117 mL/min (>90) BUN/Creatinine Ratio 14.8 (10.0-20.0) Serum Glucose 92 mg/dL (74-106) Calcium Level 9.2 mg/dL (8.7-10.4) Urine Color Light-yellow (Yellow) Urine Clarity Clear (Clear) Urine pH 7.0 (5.0-9.0) Urine Specific Counselor 1.025 (1.001-1.035) Urine Protein Negative (Negative) Urine Ketones Negative (Negative) Urine Blood Negative /uL (Negative) Urine Nitrite Negative (Negative) Urine Bilirubin Negative (Negative) Urine Urobilinogen Normal mg/dL (Negative) Urine Leukocyte Esterase Negative /uL (Negative) Urine RBC None seen /hpf (0 - 3) Urine Microscopic WBC 1 /HPF (0-3) Urine Squamous Epithelial Cells None seen /hpf (<5) Urine Bacteria None seen /hpf (None Seen) Urine Glucose Normal mg/dL (Normal) Urine Opiates Screen Neg (NEGATIVE) Urine Fentanyl Screen Neg (NEGATIVE) Urine Barbiturates Screen Neg (NEGATIVE) Urine Phencyclidine Screen Neg (NEGATIVE) Urine Amphetamines Screen Neg (NEGATIVE) Urine Benzodiazepines Screen Neg (NEGATIVE) Urine Cocaine Screen Neg (NEGATIVE) Urine Cannabinoids Screen Neg (NEGATIVE) Influenza Type A Antigen Negative (Negative) Influenza Type B Antigen Negative (Negative) SARS-CoV-2 Antigen (Rapid) Negative (NEGATIVE) Erythrocyte Sedimentation Rate 3 mm/hr (0-20) Total Bilirubin 0.3 mg/dL (0.2-1.0) Aspartate Amino Transferase (AST) 17 U/L (13-40) Alanine Aminotransferase (ALT) 27 U/L (7-40) Alkaline Phosphatase 63 U/L (46-116) C-Reactive Protein High Sensitivity 0.04 mg/dL (<1.0) B-Type Natriuretic Peptide 11.28 pg/mL (0-100) Total Protein 7.4 g/dL (5.7-8.2) Albumin 4.9 g/dL (3.2-4.8) Thyroid Stimulating Hormone (TSH) 2.35 uIU/mL (0.55-4.78) Plasma/Serum Blood Alcohol < 3.0 mg/dL (<10) Test 07/19/25 20:17 07/19/25 17:24 Troponin I High Sensitivity 29 ng/L (</=54) D-Dimer, Quantitative < 0.19 mg/L FEU (0.0-0.49) Other Laboratory Tests 07/22/25 05:37 Brief Hx & Hospital Course: This is a 34-year-old male with a past medical history of dyslipidemia and recurrent chest pains who presented to the ER with the chief complaint of chest pain since 2 days. Patient stated that he was resting when the pain started. The pain was in the left side of the chest, radiating to the neck and to the left arm, comes in and increased on walking the stairs and relieved with rest. Patient mentioned when he started having the chest pain, he could not breathe and he was trembling. He also had nausea and palpitations with the pain. The patient mentioned that the pain was a 7/10 in intensity when it 1st started and is a 2 /10 in intensity at present. The patient mentioned that he has been to the hospital 4 times before this encounter for the same complaint and was told that he has dyslipidemia and could have a blocked artery. He was put on aspirin for some time but it was discontinued. Cardiology was consulted and Cardiolite stress test was done which was negative for ischemia. The patient was discharged home on muscle relaxants. 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 Patient is alert and oriented to time, place person and responding to all questions. Eyes: No Pain, No Vision change, No Conjunctivae inflammation, No Eyelid inflammation, No Redness ENT: No Ear pain, No Ear discharge, No Nose pain, No Nose discharge, No Nose congestion, No Mouth pain, No Mouth swelling, No Throat pain, No Throat swelling Cardiovascular: mild Chest Pain, No Palpitations, No Orthopnea, No Paroxysmal No Dyspnea, No Edema, No Lt Headedness Respiratory: No Cough, No Dry, Shortness of breath, No SOB with exertion, No Wheezing, No Hemoptysis, No Pleuritic Pain, No Sputum Gastrointestinal: No Nausea, No Vomiting, No Abdominal Pain, No Diarrhea, No Constipation, No Melena, No Hematochezia Genitourinary: No Dysuria, No Frequency, No Incontinence, No Hematuria, No Retention General Appearance: Cooperative. Well developed. Well nourished. NAD Head Exam: Normal inspection Neck Exam: Normal inspection,Non-tender,Normal alignment Pulmonary/Respiratory: Chest non-tender, Clear bilateral breath sounds, no crackles, no wheezing. Cardiovascular/Chest: Regular rate and rhythm, No murmurs, No JVD, normal S1 and S2, chest wall tenderness on left side with tenderness in left arm Peripheral Pulses: 2+ Radial (R). 2+ Radial (L). 2+ Pedal (R). 2+ Pedal (L) Abdominal Exam: Normal bowel sounds,Soft, normal abdomen, no visible veins, Nontender, No hepatospenomegaly, No masses Ankle Exam: Negative ankle edema Lower extremities: Negative lower extremity edema Neuro/Mental Status: A&O x4. Coherent. Thoughts/Psych: Normal thought pattern, Appropriate mood and affect,Good judgement and insight Skin Exam: Normal inspection, Normal color,Warm,Dry Discharge plan: -follow-up with PCP -sent on muscle relaxants Operations or Procedures 1.PROCEDURE(s): CXR2 - CHEST TWO VIEWS ROUTINE REASON: CP ORDER NUMBER(s): [id number], ACCESSION NUMBER(s): [id number] XY CHEST TWO VIEWS ROUTINE INDICATION: CP TECHNIQUE: Two views of the chest COMPARISON: XY CHEST XRAY 1 VIEW on DOS: 06/24/25 FINDINGS/IMPRESSION: LUNGS: No pleural effusion, consolidation, or pneumothorax MEDIASTINUM: Unremarkable BONES: No acute osseous abnormality OTHER: None 2.PROCEDURE(s): CWMM - CARDIOLITE MULTIPLE REASON: Chest pain ORDER NUMBER(s): [id number], ACCESSION NUMBER(s): [id number] APPROVED REPORT Exam: Nuclear Stress Test Indication: Chest pain BMI: 0 Medical History Medical History: Denied Allergies: No known drug allergies Stress Test Details Stress Test: Exercise stress testing was performed using a Luis Manuel protocol. HR Resting HR: 65 bpm Max Heart Rate (APMHR): 188.736257 bpm Max HR Achieved: 144 bpm Target HR (85% APMHR): 159.213404 bpm % of APMHR: 76.60 Recovery HR: 90 bpm BP Resting BP: 138/98 mmHg Recovery BP: 158/89 mmHg ECG Resting ECG: Sinus Rhythm Clinical Reason for Termination: Completed protocol Exercise duration: 9 min sec Nurse Comments Recieved ambulatory, A/Ox4 on RA, connected to registered nurse cardiac, VS stable. PIV S/L flushes well, reviewed POC, pt verbalized understanding. Leo [employer] COOK here to monitor exam. Treadmill test performed per protocol. Pt stable, tolerated well, VS returned to baseline. Pt to follow up with glass calibrator for results. Stress ECG Conclusion lvef61% minor inferior wall artifact noted clinical correlate no major ischemia noted NM EXAM: Myocardial Perfusion REST/STRESS Imaging Protocol: Rest Tc-99m/Stress Tc-99m 1 day Resting Data Rest SPECT myocardial perfusion imaging was performed in supine position 60 minutes following the intravenous injection of 9.8 mCi of Tc-99m Sestamibi. Time of rest injection: 07:50 Date: 07/21/2025 Time of rest imagin:50 Date: 07/21/2025 Administration Route: IV Administration Site: Right Arm Exercise Stress At peak stress, the patient was injected intravenously with 33.0mCi of Tc-99m Sestamibi. Time of stress injection: 09:49 Date: 07/21/2025 Time of stress imagin:04 Date: 07/21/2025 Administration Route: IV Administration Site: Right Arm Gated Stress SPECT was performed 15 minutes after stress injection. The images were gated to evaluate regional wall motion and calculate left ventricular ejection fraction. Stress only was performed in the Supine position. 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: OTF : 1990 Requested By: EMILY SCHMID Order Number: [id number] Reading MD: Measurements Intervals [place] Rate: 63 P: 83 MA: 155 QRS: 96 QRSD: 82 T: -21 QT: 381 QTc: 390 Interpretive Statements Sinus rhythm Lateral infarct, acute Borderline ST elevation, anterior leads Condition at Discharge: Fair Final Diagnosis/Problems List Chest pain, likely musculoskeletal ruled out ACS Musculoskeletal chest pain/costochondritis Dyslipidemia Discharge Disposition: Home Discharge Instruct/Medications Diet: Regular Activity: No Restrictions, As Tolerated Follow Up/Referral: PCP and DC clinic Medications: Per EMR Scheduled Atorvastatin Calcium (Lipitor), 1 TAB PO QPM Cyclobenzaprine HCl (Cyclobenzaprine Hydrochlo), 10 MG PO HS Scheduled PRN Ibuprofen Micronized (Motrin Tablet), 600 MG PO BIDPRN PRN Discharge Statement: "Patient was advised to return to the ER or call 911 if any headaches, dizziness, shortness of breath, chest pain, abdominal pain, bleeding, fevers, or worsening of medical condition. Patient was counseled about treatment plan, medications, possible side effects, patientverbalized understanding. All questions were answered to the best of my ability. This discharge took greater then 30 minutes in planning, reviewing documentation, counseling the patient, and discussing with other team members." ASSESSMENT ASSESSMENT Assessment Chest pain, ruled out ACS Atypical chest pain Musculoskeletal chest pain/costochondritis Palpitations rule out tachyarrhythmias on outpatient Dyslipidemia VINICIO DAVIS RESIDENT Jul 22, 2025 16:43
== END 2025-07-22 13:20 | disposition home or self-care (01) | DRG 203 ==
LOC: ER 17:03 → OVERFLOW 22:29 → TELE-WESTW 07-20 22:05
PROVIDERS: ADMIT Student in an Organized Health Care Education/Training Program; ATTEND Student in an Organized Health Care Education/Training Program
DX: M94.0 Chondrocostal junction syndrome [Tietze] (principal); E66.9 Obesity, unspecified; E78.5 Hyperlipidemia, unspecified; F17.210 Nicotine dependence, cigarettes, uncomplicated; F41.9 Anxiety disorder, unspecified; Z20.822 Contact with and (suspected) exposure to COVID-19; Z82.49 Family history of ischemic heart disease and other diseases of the circulatory system; Z68.30 Body mass index [BMI] 30.0-30.9, adult
CPT/HCPCS: 36415; 71046; 78452; 80048; 80053; 80307; 80320; 81001; 83880; 84443; 84484; 85025; 85379; 85652; 86141; 87081; 87426; 87804; 93005; 93017; 96374; G0378; J2405; J2470